=== PATIENT | male | born 1965 | race Caucasian/White ===

== ENCOUNTER 2017-07-23 17:16 | Inpatient (IN) | payer OTHER ==
[2017-07-23] MEDS ORDERED: SODIUM CHLORIDE 0.9% 1,000 ML IV ONE ×2 (17:23)
[2017-07-23] MEDS ORDERED: HYDROmorphone 1 MG/ML SYRINGE IVP STA ×2 (17:33→19:12)
[2017-07-23] MEDS ORDERED: ONDANSETRON 4 MG/2 ML VIAL IVP STA (17:33)
--- NOTE | 2017-07-23 17:38 | ED Physician Documentation ---
PD HPI ABD PAIN - Stated complaint Stated Complaint: R SIDE PX - Chief complaint Chief Complaint: Abd Pain - History obtained from History obtained from: Patient, Family - History of Present Illness Timing - onset: How many hours ago (4), Today Timing - duration: Hours (4) Timing - details: Gradual onset Pain level max: 10 Pain level now: 10 Quality: Aching, Pain Location: RLQ Radiation: Other (non-radiaiting) Improved by: Laying still Worsened by: Moving Associated symptoms: Nausea. No: Vomiting, Hematemesis, Diarrhea, Constipation , Melena, Hematochezia, Dysuria, Hematuria Similar symptoms before: Has not had sx before Recently seen: Not recently seen Review of Systems Ten Systems: 10 systems reviewed and negative Constitutional: reports: Fever, Chills Throat: denies: Sore throat Cardiac: denies: Chest pain / pressure Respiratory: denies: Cough GI: denies: Nausea, Vomiting, Diarrhea Skin: denies: Rash Musculoskeletal: denies: Neck pain, Back pain Neurologic: denies: Focal weakness, Numbness, Headache PD PAST MEDICAL HISTORY - Past Medical History Cardiovascular: None Respiratory: None Neuro: None Endocrine/Autoimmune: None GI: GERD : None HEENT: None Psych: None Musculoskeletal: None Derm: None - Past Surgical History Past Surgical History: Yes HEENT: Tonsil/Adenoidectomy - Present Medications Home Medications: Ambulatory Orders Medication Instructions Recorded Confirmed Fluticasone [Flonase] 1 spray INH PRN PRN 07/23/17 07/23/17 Loratadine 1 tab PO BID 07/23/17 07/23/17 Omeprazole [PriLOSEC] 2 tab PO BID 07/23/17 07/23/17 raNITIdine [Zantac] 1 tab PO DAILY 07/23/17 07/23/17 - Allergies Allergies/Adverse Reactions: Allergies Allergy/AdvReac Type Severity Reaction Status Date / Time lactose Allergy Unknown Verified 07/23/17 21:24 - Social History Does the pt smoke?: No Smoking Status: Never smoker Does the pt drink ETOH?: No Does the pt have substance abuse?: No - Immunizations Immunizations are current?: Yes - POLST Patient has POLST: No PD ED PE NORMAL - Vitals Vital signs reviewed: Yes - General General: Alert and oriented X 3, No acute distress - HEENT HEENT: Moist mucous membranes - Neck Neck: Supple, no meningeal sign - Cardiac Cardiac: RRR - Respiratory Respiratory: No respiratory distress, Clear bilaterally - Abdomen Abdomen: Soft, Other (TTP RLQ at Mcburney's point. + rebound. no guarding. neg rovsing, psoas. + obturator. ) - Back Back: No CVA TTP - Derm Derm: Warm and dry, No rash - Neuro Neuro: Alert and oriented X 3 - Psych Psych: Normal mood, Normal affect Results - Vitals Vitals: Vital Signs - 24 hr 07/23/17 07/23/17 17:18 19:08 Temperature 39.3 C H 38.8 C H Heart Rate 143 H 104 H Respiratory 20 14 Rate Blood Pressure 133/99 H 145/90 H O2 Saturation 97 96 Oxygen O2 Source Room air - Labs Labs: Laboratory Tests 07/23/17 07/23/17 07/23/17 17:32 17:32 17:32 WBC 8.6 RBC 5.32 Hgb 14.9 Hct 43.8 MCV 82.3 MCH 28.1 MCHC 34.1 RDW 13.5 Plt Count 177 MPV 8.7 Neut # 7.0 H Lymph # 1.0 L [place] # 0.5 Eos # 0.0 Baso # 0.0 Absolute Nucleated RBC 0.00 Nucleated RBC % 0.0 Sodium 134 L Potassium 3.5 Chloride 98 L Carbon Dioxide 21 Anion Gap 15.0 H BUN 15 Creatinine 1.1 Estimated GFR (MDRD) 71 L Glucose 108 H Lactic Acid 0.9 Calcium 8.8 Total Bilirubin 1.2 H AST 25 ALT 26 Alkaline Phosphatase 71 Total Protein 7.8 Albumin 4.6 Globulin 3.2 Albumin/Globulin Ratio 1.4 Lipase 30 Urine Color Urine Clarity Urine pH Ur Specific [place] Urine Protein Urine Glucose (UA) Urine Ketones Urine Occult Blood Urine Nitrite Urine Bilirubin Urine Urobilinogen Ur Leukocyte Esterase Urine RBC Urine WBC Ur Squamous Epith Cells Urine Bacteria Urine Yeast Ur Microscopic Review Urine Culture Comments 07/23/17 18:42 WBC RBC Hgb Hct MCV MCH MCHC RDW Plt Count MPV Neut # Lymph # [place] # Eos # Baso # Absolute Nucleated RBC Nucleated RBC % Sodium Potassium Chloride Carbon Dioxide Anion Gap BUN Creatinine Estimated GFR (MDRD) Glucose Lactic Acid Calcium Total Bilirubin AST ALT Alkaline Phosphatase Total Protein Albumin Globulin Albumin/Globulin Ratio Lipase Urine Color LT. YELLOW Urine Clarity HAZY Urine pH 5.5 Ur Specific [place] <=1.005 Urine Protein NEGATIVE Urine Glucose (UA) NEGATIVE Urine Ketones NEGATIVE Urine Occult Blood TRACE-INTA Urine Nitrite NEGATIVE Urine Bilirubin NEGATIVE Urine Urobilinogen 0.2 (NORMAL) Ur Leukocyte Esterase NEGATIVE Urine RBC 0-5 Urine WBC 0-3 Ur Squamous Epith Cells NONE SEEN Urine Bacteria None Seen Urine Yeast PRESENT Ur Microscopic Review INDICATED Urine Culture Comments NOT INDICATED - Rads (name of study) CT abd/pelvis Radiology: Prelim report reviewed, EMP read contemporaneously, See rad report ( Findings consistent with acute sigmoid diverticulitis. There are couple of foci of gas which are most likely extraluminal suggesting perforation, without diffuse pneumoperitoneum or evidence of abscess. Probable tiny right renal cyst. ) PD MEDICAL DECISION MAKING - ED course Complexity details: reviewed results, re-evaluated patient, considered differential, d/w patient, d/w family, d/w senior solutions consultant ED course: Patient is a 52-year-old male who presents to the emergency department with abdominal pain and fever today. Found to have acute sigmoid diverticulitis with microperforations. Discussed the case with Dr. Nelson, general surgery on -call who recommends IV antibiotics and admit to medicine. Discussed the case with the hospitalist, Dr. Hopkins who accepts. Given Flagyl and Zosyn in the emergency department. Pain well controlled. Fever decreased, heart rate decreased. Lactate normal. Patient states he has had diverticulitis several times in the past, last was 2-3 years ago. Has been talked to before about having surgery for this. This document was made in part using voice recognition software. While efforts are made to proofread this document, sound alike and grammatical errors may occur. Departure - Departure Disposition: 67 [facility] DC/Xfer Clinical Impression: Diverticulitis of colon with perforation Qualifiers: Diverticulitis bleeding: without bleeding Qualified Code(s): K57.20 - Diverticulitis of large intestine with perforation and abscess without bleeding Fever Qualifiers: Fever type: unspecified Qualified Code(s): R50.9 - Fever, unspecified Condition: Stable Discharge Date/Time: 07/23/17 20:11
[2017-07-23 17:43] LABS: BASOPHILS % (AUTO) 0.4 %; EOSINOPHILS % (AUTO) 0.3 %; HGB - HEMOGLOBIN 14.9 g/dL (14.0-18.0); LYMPHOCYTES % (AUTO) 11.2 %; MEAN CORPUSCULAR HEMOGLOBIN 28.1 pg (27.0-31.0); MEAN CORPUSCULAR HGB CONC 34.1 g/dL (32.0-36.0); MEAN CORPUSCULAR VOLUME 82.3 fL (80.0-94.0); MEAN PLATELET VOLUME 8.7 fL (7.4-11.4); MONOCYTES # (AUTO) 0.5 10^3/uL (0.0-1.0); MONOCYTES % (AUTO) 6.1 %; PLT - PLATELET COUNT 177 10^3/uL (130-450); RED BLOOD COUNT 5.32 10^6/uL (4.70-6.10); RED CELL DISTRIBUTION WIDTH 13.5 % (12.0-15.0); WHITE BLOOD COUNT 8.6 x10^3/uL (4.8-10.8)
[2017-07-23 17:54] LABS: ALBUMIN 4.6 g/dL (3.2-5.5); ALBUMIN/GLOBULIN RATIO 1.4 (1.0-2.2); BILIRUBIN,TOTAL 1.2 mg/dL (0.2-1.0); CALCIUM 8.8 mg/dL (8.5-10.3); CREATININE 1.1 mg/dL (0.6-1.2); TOTAL PROTEIN 7.8 g/dL (6.7-8.2)
[2017-07-23] MEDS ORDERED: IOPAMIDOL-300 100 ML VIAL ONE (17:57)
[2017-07-23] MEDS ORDERED: IOPAMIDOL-300 100 ML VIAL IVP ONE (18:16)
[2017-07-23 18:49] LABS: BILIRUBIN,URINE NEGATIVE (NEGATIVE); GLUCOSE, URINE (UA) NEGATIVE (NEGATIVE); KETONES,URINE (UA) NEGATIVE (NEGATIVE); LEUKOCYTE ESTERASE, URINE NEGATIVE (NEGATIVE); NITRITE,URINE NEGATIVE (NEGATIVE); OCCULT BLOOD,URINE TRACE-INTA (NEGATIVE); PH,URINE 5.5 PH (5.0-7.5); PROTEIN,URINE NEGATIVE (NEGATIVE); UROBILINOGEN,URINE 0.2 (NORMAL) E.U./dL (NORMAL)
[2017-07-23 19:00] LABS: CLARITY,URINE HAZY (CLEAR)
[2017-07-23 19:05] LABS: BACTERIA,URINE None Seen /HPF (None Seen); RBC,URINE 0-5 /HPF (0-5); SQUAMOUS EPITHELIAL CELL,UR NONE SEEN (<= Few); YEAST,URINE PRESENT
[2017-07-23] MEDS ORDERED: PIPERACILLIN/TAZOBACTAM 3.375 GM in SODIUM CHLORIDE 0.9% MINIBAG 100 ML IV STA (19:10)
[2017-07-23] MEDS ORDERED: metroNIDAZOLE 500 MG/100 ML 500 MG/100 ML BAG IV ONE (19:11)
[2017-07-23] MEDS ORDERED: ACETAMINOPHEN 325 MG TABLET PO STA (19:12)
--- NOTE | 2017-07-23 19:16 | CT Report ---
EXAM: CT ABDOMEN AND PELVIS EXAM DATE: 07/23/2017 06:16 PM. CLINICAL HISTORY: RLQ abd pain. Acute onset. COMPARISONS: Noncontrast CT abdomen and pelvis 03/21/2010. TECHNIQUE: Routine helical CT imaging was performed through the abdomen and pelvis. IV contrast: ISOV UE 300 100mL. Enteric contrast: No. Reconstructions: Coronal and sagittal. In accordance with CT protocol optimization, one or more of the following dose reduction techniques w ere utilized for this exam: automated exposure control, adjustment of mA and/or KV based on patient s ize, or use of iterative reconstructive technique. FINDINGS: Lung Bases: Unremarkable. Liver: Normal. No masses. Gallbladder/Bile Ducts: Unremarkable. Spleen: Normal. Pancreas: Normal. Adrenal Glands: Normal. Kidneys: Tiny right lower pole hypodensity is too small to characterize but likely represents a small cyst.. No definite masses or hydronephrosis. Peritoneal Cavity/Bowel: No adenopathy or free air. The appendix is well visualized and normal. Substantial colonic diverticulosis again demonstrated. There is new focal wall thickening involving t he mid sigmoid colon at and to the right of the midline, just above the level of the bladder, with ne w surrounding hazy infiltrative/inflammatory change and trace fluid, consistent with acute diverticul itis. Multiple air-containing diverticula are seen in the area. However, there are at least 2 small f oci of gas in the right pelvis just medial to the iliac vessels (- and coronal images 34, 35) w hich appear more from the colon and are highly suspicious for small extraluminal foci which would suggest perforation. However, there is no evidence of more diffuse pneumoperitoneum. No eviden ce of abscess. Pelvic Organs: Normal. The bladder and visualized pelvic organs are within normal limits. Vasculature: No aneurysms or other significant abnormality. Bones: No significant abnormality. Other: Small fat-containing umbilical hernia redemonstrated. IMPRESSION: 1. Findings consistent with acute sigmoid diverticulitis. 2. There are couple of foci of gas which are most likely extraluminal suggesting perforation, without diffuse pneumoperitoneum or evidence of abscess. 3. Probable tiny right renal cyst. RADIA The above findings were discussed with Dr. Shahid Kapoor by Dr. Jaime Puente at 19:09 hrs on 07/23/17 . Referring Provider Line: [phone] SITE ID: [id number]
[2017-07-23] MEDS ORDERED: ZOLPIDEM 5 MG TABLET PO PRN (19:37)
[2017-07-23] MEDS ORDERED: PROMETHAZINE 25 MG/1 ML VIAL IV PRN (20:06)
[2017-07-23] MEDS: ONDANSETRON 4 MG/2 ML VIAL IVP PRN (20:08)
[2017-07-23] MEDS: SODIUM CHLORIDE FLUSH 0.9% 10 ML SYRINGE IVP SCH (20:58)
[2017-07-23] MEDS: PANTOPRAZOLE 40 MG VIAL IVP SCH (20:59)
[2017-07-23] MEDS: KETOROLAC 15 MG/ML VIAL IVP PRN (21:00)
[2017-07-23] MEDS: D5NS W/20 MEQ KCL 1,000 ML IV SCH (21:02)
[2017-07-24] MEDS: ACETAMINOPHEN 1,000 MG/100 ML 100 ML IV PRN ×2 (00:35→20:03)
[2017-07-24] MEDS: SODIUM CHLORIDE FLUSH 0.9% 10 ML SYRINGE IVP PRN ×2 (02:59→06:52)
[2017-07-24] MEDS: MORPHINE 2 MG/ML CARPUJECT IVP PRN ×7 (03:00→21:31)
[2017-07-24] MEDS: metroNIDAZOLE 500 MG/100 ML 500 MG/100 ML BAG IV SCH ×3 (04:34→21:31)
[2017-07-24 05:20] LABS: BASOPHILS % (AUTO) 0.1 %; HGB - HEMOGLOBIN 12.7 g/dL (14.0-18.0); LYMPHOCYTES # (AUTO) 0.6 10^3/uL (1.5-3.5); LYMPHOCYTES % (AUTO) 11.8 %; MEAN CORPUSCULAR HEMOGLOBIN 27.5 pg (27.0-31.0); MEAN CORPUSCULAR HGB CONC 33.1 g/dL (32.0-36.0); MEAN CORPUSCULAR VOLUME 83.3 fL (80.0-94.0); MEAN PLATELET VOLUME 8.8 fL (7.4-11.4); MONOCYTES # (AUTO) 0.3 10^3/uL (0.0-1.0); MONOCYTES % (AUTO) 6.5 %; NEUTROPHILS # (AUTO) 4.2 10^3/uL (1.5-6.6); NEUTROPHILS % (AUTO) 81.6 %; PLT - PLATELET COUNT 150 10^3/uL (130-450); RED CELL DISTRIBUTION WIDTH 13.8 % (12.0-15.0); WHITE BLOOD COUNT 5.1 x10^3/uL (4.8-10.8)
[2017-07-24 05:24] LABS: CALCIUM 7.2 mg/dL (8.5-10.3); CREATININE 0.8 mg/dL (0.6-1.2)
[2017-07-24] MEDS: PIPERACILLIN/TAZOBACTAM 3.375 GM in SODIUM CHLORIDE 0.9% MINIBAG 100 ML IV SCH ×3 (05:36→23:06)
[2017-07-24] MEDS: SODIUM CHLORIDE FLUSH 0.9% 10 ML SYRINGE IVP SCH ×3 (05:36→21:31)
[2017-07-24] MEDS: PANTOPRAZOLE 40 MG VIAL IVP SCH (06:52)
[2017-07-24] MEDS: D5NS W/20 MEQ KCL 1,000 ML IV SCH ×2 (06:52→17:01)
[2017-07-24] MEDS ORDERED: PROMETHAZINE INJ 25 MG in SODIUM CHLORIDE 0.9% 50 ML IV PRN (07:23)
--- NOTE | 2017-07-24 09:17 | HISTORY & PHYSICAL EXAMINATION ---
DATE OF SERVICE: 07/23/2017 Physician: Iram Hopkins MD PRIMARY CARE PHYSICIAN: Zac Voar MD CHIEF COMPLAINT: Abdominal pain. HISTORY OF PRESENT ILLNESS: The patient is a 52-year-old pleasant male, with not much past medical history except for history of diverticulitis and gastroesophageal reflux , who presented to [facility] after he developed abdominal pain about 4 hours prior to coming to the ER. He was brought in by a private vehicle and accompanied by his . He developed 10/10 intensity of sharp right lower quadrant abdominal discomfort, which was associated with nausea and fever. Prior to this, he had an episode of diverticulitis back in 2014. Most recently, he did not have any abdominal complaints. Other than medications for GERD, he did not take any outpatient medications. Regarding bowel movements, he usually has regular bowel movements, and the last bowel movement he had was earlier in the morning of 07/23/2017. It was a normal bowel movement without blood. Upon presentation to the ER, the patient showed septic physiology. He was tachycardic with heart rate around 140, had high fever with temperature 39.3 Celsius. Blood pressure maintained normal at 130/100, respiratory rate was 20, oxygen saturation 97% on room air. ER workup included CT scan of the abdomen and pelvis, which showed sigmoid diverticulitis with microperforation. Regarding laboratories, white blood cell count was normal at 8.6, hemoglobin normal at 14.9. There was neutrophil predominance. Electrolytes included sodium 134, potassium 3.5, BUN 15, creatinine 1.1. Lactic acid was 0.9. Urinalysis was unremarkable. At the ER, the patient received Flagyl and Zosyn and 2 liters IV fluid. The case was discussed with the covering surgeon, Dr. Nelson, per his opinion patient should initially receive conservative treatment, and he will evaluate in the morning. CODE STATUS: FULL CODE. PAST MEDICAL HISTORY 1. History of diverticulosis and diverticulitis with last episode of diverticulitis in 2014. 2. Gastroesophageal reflux. OUTPATIENT MEDICATIONS Included: 1. Ranitidine. 2. Omeprazole. 3. Fluticasone. 4. Loratadine. SOCIAL HISTORY: Patient does not smoke, does not drink. He is fully functional instrumental activities of daily living. He lives with his . FAMILY HISTORY: No pertinent chronic illness in first degree relatives. REVIEW OF SYSTEMS: Please see pertinent positives listed above in history of present illness. I completed 12-point review; there was no additional complaint. PHYSICAL EXAMINATION VITAL SIGNS: Please see listed above in the history of present illness. GENERAL: The patient is a well-developed, well-nourished, young-appearing male who appeared in distress, was diaphoretic, and vomited during my exam. ABDOMEN: Not much bowel tone. Diffuse tenderness mostly on the right side. No voluntary guarding and no rebound. Vomitus was with clear gastric content. No blood. RESPIRATORY: Clear to auscultation without wheeze or crackles, no increased work of breathing. SKIN: Mild pallor and diaphoresis. No jaundice. MUSCULOSKELETAL: Atraumatic, normal. CARDIOVASCULAR: S1, S2. Regular tachycardia. No pathologic murmur. LYMPHATIC: No lymphedema. NEUROLOGIC: Alert, oriented, nonfocal. PSYCHIATRIC: Cooperative, pleasant to talk to. ACTIVE ISSUES/DIAGNOSIS/PLAN: Sepsis, the patient rules in for this diagnosis, given vital sign abnormalities with heart rate around 140 and high fever above 39 Celsius. The source of sepsis is abdominal source with perforated diverticulitis. PLAN AND ORDERS 1. Patient is getting admitted as inpatient. He will be treated with continued IV fluids, IV antibiotics, and supportive care/symptom control; will receive thrombosis prophylaxis and gastrointestinal prophylaxis. He will be evaluated by on-call surgeon in the morning; however, most likely will improve on conservative management. 2. Given his septic physiology, he will be monitored on telemetry for 24 hours. Time spent in the care of this patient was 45 minutes. ATTESTATION: In good erma, I certify that this patient will be admitted as inpatient as he needs to be hospitalized for more than 2 days; however, the reasonable expectation is that he will be discharged home or transferred to another facility within 96 hours. cc: Zac Vora MD TD: 07/24/2017 06:00 LALITHA
[2017-07-24] MEDS: ENOXAPARIN 40 MG/0.4 ML SYRINGE SUBQ SCH (10:26)
[2017-07-24] MEDS: POLYETHYLENE GLYCOL 3350 17 GM PACKET PO SCH (10:26)
--- NOTE | 2017-07-24 10:45 | PROVIDER PROGRESS NOTE ---
Subjective - Prog Note Date Prog Note Date: 07/24/17 Prog Note Time: 10:43 - Subjective Pt reports feeling: Improved Subjective: Laney notes that his pain is controlled. He denies SOB, chest pain, N/V or a new cough. He has tenderness in lower quadrants of his abdomen. Current Medications - Current Medications Current Medications: Active Medications Enoxaparin Sodium (Lovenox) 40 mg SUBQ DAILY [facility] Last Admin: 07/24/17 10:26 Dose: 40 mg Potassium Chloride/Dextrose/Sod Cl () 1,000 mls @ 100 mls/hr IV .Q10H [facility] Last Admin: 07/24/17 17:01 Dose: 100 mls/hr Metronidazole (Flagyl 500 Mg/100 Ml) 500 mg in 100 mls @ 100 mls/hr IV Q8HR [facility] Last Infusion: 07/24/17 15:01 Dose: Infused Acetaminophen (Ofirmev) 100 mls @ 400 mls/hr IV Q6HR PRN PRN Reason: PAIN Last Infusion: 07/24/17 09:43 Dose: Infused Piperacillin Sod/Tazobactam (Sod 3.375 gm/ Sodium Chloride) 100 mls @ 200 mls/ hr IV Q8HR [facility] Last Infusion: 07/24/17 15:01 Dose: Infused Promethazine HCl 25 mg/ Sodium (Chloride) 51 mls @ 100 mls/hr IV BID PRN PRN Reason: Nausea / Vomiting Ketorolac Tromethamine (Toradol Inj) 15 mg IVP BID PRN PRN Reason: PAIN Stop: 07/28/17 20:59 Last Admin: 07/23/17 21:00 Dose: 15 mg Morphine Sulfate (Morphine (Carpuject)) 4 mg IVP Q2HR PRN PRN Reason: Pain 8 to 10 Last Admin: 07/24/17 13:46 Dose: 4 mg Ondansetron HCl (Zofran Inj) 4 mg IVP Q6HR PRN PRN Reason: Nausea / Vomiting Last Admin: 07/23/17 20:08 Dose: 4 mg Pantoprazole Sodium (Protonix) 40 mg IVP QDAC [facility] Last Admin: 07/24/17 06:52 Dose: 40 mg Polyethylene Glycol (Miralax) 17 gm PO DAILY [facility] Last Admin: 07/24/17 10:26 Dose: Not Given Sodium Chloride (Normal Saline Flush 0.9%) 10 ml IVP PRN PRN PRN Reason: NEEDED PER PROVIDER ORDERS Last Admin: 07/24/17 06:52 Dose: 10 ml Sodium Chloride (Normal Saline Flush 0.9%) 10 ml IVP Q8HR [facility] Last Admin: 07/24/17 15:00 Dose: Not Given Zolpidem Tartrate (Ambien) 5 mg PO QPM PRN PRN Reason: Insomnia Fluticasone [Flonase] 1 spray GERRI PRN PRN 07/23/17 Loratadine 1 tab PO BID 07/23/17 Omeprazole [PriLOSEC] 2 tab PO BID 07/23/17 raNITIdine [Zantac] 1 tab PO BID 07/23/17 Objective - Vital Signs/Intake & Output Reviewed Vital Signs: Yes Vital Signs: Vital Signs x48h Temp Pulse Resp BP Pulse Ox 07/24/17 08:00 36.9 C 72 18 105/65 98 07/24/17 05:31 36.7 C 70 16 102/62 96 Intake & Output: Intake & Output 07/21/17 07/22/17 07/23/17 07/24/17 23:59 23:59 23:59 23:59 Intake Total 552.5 1283.333 Output Total 375 450 Balance 177.5 833.333 - Objective General Appearance: positive: No acute distress, Alert Eyes Bilateral: positive: Normal inspection ENT: positive: ENT inspection nml, Pharynx nml, Dry mucous membranes Neck: positive: Nml inspection, Thyroid nml, No JVD, Trachea midline Respiratory: positive: Chest non-tender, No respiratory distress Cardiovascular: positive: Regular rate & rhythm, No murmur, No gallop Peripheral Pulses: 2+ Radial (R), 2+ Radial (L) Abdomen: positive: Tenderness, Guarding, Abnml bowel sounds Back: positive: Nml inspection Skin: positive: No rash, Warm, Dry Extremities: positive: Non-tender, Full ROM, Nml appearance, No pedal edema Neurologic/Psychiatric: positive: Oriented x3, CN's nml (2-12), Motor nml, Sensation nml Reflexes: Bicep (R): 2+, Bicep (L): 2+ - Lab Results Fish Bones: 07/24/17 04:45 07/24/17 04:45 Other Labs: Lab Results x24hrs 07/24/17 07/24/17 Range/Units 04:45 04:45 WBC 5.1 (4.8-10.8) x10^3/uL RBC 4.60 L (4.70-6.10) 10^6/uL Hgb 12.7 L (14.0-18.0) g/dL Hct 38.3 L (42.0-52.0) % MCV 83.3 (80.0-94.0) fL MCH 27.5 (27.0-31.0) pg MCHC 33.1 (32.0-36.0) g/dL RDW 13.8 (12.0-15.0) % Plt Count 150 (130-450) 10^3/uL MPV 8.8 (7.4-11.4) fL Neut # 4.2 (1.5-6.6) 10^3/uL Lymph # 0.6 L (1.5-3.5) 10^3/uL [place] # 0.3 (0.0-1.0) 10^3/uL Eos # 0.0 (0.0-0.7) 10^3/uL Baso # 0.0 (0.0-0.1) 10^3/uL Absolute Nucleated RBC 0.00 x10^3/uL Nucleated RBC % 0.1 /100WBC Sodium 131 L (135-145) mmol/L Potassium 3.7 (3.5-5.0) mmol/L Chloride 100 L (101-111) mmol/L Carbon Dioxide 25 (21-32) mmol/L Anion Gap 6.0 (6-13) BUN 12 (6-20) mg/dL Creatinine 0.8 (0.6-1.2) mg/dL Estimated GFR (MDRD) 102 (>89) Glucose 128 H (70-100) mg/dL Calcium 7.2 L (8.5-10.3) mg/dL - Diagnostic Imaging Diagnostic Imaging Results: positive: Prelim report reviewed, Final report reviewed Diagnostic Imaging Comments: CT abdomen: FINDINGS: Lung Bases: Unremarkable. Liver: Normal. No masses. Gallbladder/Bile Ducts: Unremarkable. Spleen: Normal. Pancreas: Normal. Adrenal Glands: Normal. Kidneys: Tiny right lower pole hypodensity is too small to characterize but likely represents a small cyst.. No definite masses or hydronephrosis. Peritoneal Cavity/Bowel: No adenopathy or free air. The appendix is well visualized and normal. Substantial colonic diverticulosis again demonstrated. There is new focal wall thickening involving the mid sigmoid colon at and to the right of the midline, just above the level of the bladder, with new surrounding hazy infiltrative/inflammatory change and trace fluid, consistent with acute diverticulitis. Multiple air-containing diverticula are seen in the area. However, there are at least 2 small foci of gas in the right pelvis just medial to the iliac vessels (3/72-74 and coronal images 34, 35) which appear more from the colon and are highly suspicious for small extraluminal foci which would suggest perforation. However , there is no evidence of more diffuse pneumoperitoneum. No evidence of abscess. Pelvic Organs: Normal. The bladder and visualized pelvic organs are within normal limits. Vasculature: No aneurysms or other significant abnormality. Bones: No significant abnormality. Other: Small fat-containing umbilical hernia redemonstrated. IMPRESSION: 1. Findings consistent with acute sigmoid diverticulitis. 2. There are couple of foci of gas which are most likely extraluminal suggesting perforation, without diffuse pneumoperitoneum or evidence of abscess. 3. Probable tiny right renal cyst. Assessment/Plan - Problem List (1) Diverticulitis of colon with perforation Impression: An abdominal CT was performed and shows free air, likely caused by perforation without diffuse pneumoperitoneum or evidence of abscess. General surgery was consulted and Dr. Nelson is planning to see the patient. No indication for procedures. Plan: Continue IV antibiotic treatment, watch for signs of worsening condition. Qualifiers: Diverticulitis bleeding: without bleeding Qualified Code(s): K57.20 - Diverticulitis of large intestine with perforation and abscess without bleeding (2) Nausea Impression: Upon exam today patient denies nausea or vomiting. Patient seems comfortable, and denies a BM today. Plan: Continue IV hydration, control pain and use antiemetics if needed. (3) Intractable lower abdominal pain Impression: Patient continues to have lower bilateral abdominal pain. This correlates to acute diverticulitis. Patient admits to good pain control during exam today. Plan: Treat with IV morphine, IV APAP and IV protonix.
[2017-07-24] MEDS ORDERED: FLUTICASONE NASAL SPRAY NAS PRN (18:42)
--- NOTE | 2017-07-24 19:12 | CONSULTATION NOTE ---
Referring Provider Name of Referring Provider:: Iglesia Weston Consult Date: 07/24/17 Chief Complaint - Chief Complaint Chief Complaint: Perforated diverticulitis without signs of sepsis History of Present Illness - Admitted From Admitted From:: Emergency department - History Obtained From Records Reviewed: Yes History obtained from: Patient Exam Limitations: None - History of Present Illness HPI Comment/Other: Called by Dr. Jacob Bojorquez rergarding this 52 year old male with recurrent diverticulitis. Patient has had at least 2 episodes over the past 2 years - one treated with pain killers and the other requiring hospitalization at [facility]. His last colonoscopy was done about 9 years ago and he is due next year (per the patient). Other than his abdominal pain he is now minimally symptomatic. Daniel hematemesis, melena or hematochezia. History - Past Medical History Cardiovascular: reports: None Respiratory: reports: None Neuro: reports: None Endocrine/Autoimmune: reports: None GI: reports: GERD : reports: None HEENT: reports: None Psych: reports: None Musculoskeletal: reports: None Derm: reports: None MRSA Hx?: No Other Past Medical History: L knee, Cpap use, deviated repair septum - Past Surgical History HEENT: reports: Tonsil/Adenoidectomy - POLST Patient has POLST: No Meds/Allgy - Home Medications Home Medications: Ambulatory Orders Medication Instructions Recorded Confirmed Fluticasone [Flonase] 1 spray GERRI PRN PRN 07/23/17 07/24/17 Loratadine 1 tab PO BID 07/23/17 07/23/17 Omeprazole [PriLOSEC] 2 tab PO BID 07/23/17 07/23/17 raNITIdine [Zantac] 1 tab PO BID 07/23/17 07/24/17 - Allergies Allergies/Adverse Reactions: Allergies Allergy/AdvReac Type Severity Reaction Status Date / Time lactose Allergy Unknown Verified 07/23/17 21:24 Review of Systems - Constitutional Constitutional: reports: Poor appetite. denies: Fatigue, Fever, Chills, Malaise , Weakness - Ears, Nose & Throat Ears, Nose & Throat: denies: Ear pain, Hearing loss, Sore throat, Hoarseness - Cardiovascular Cariovascular: denies: Irregular heart rate, Palpitations, Chest pain, Lightheadedness - Respiratory Respiratory: denies: Cough, Sputum production, Wheezing - Gastrointestinal Gastrointestinal: reports: Abdominal pain. denies: Rectal bleeding, Black stools, Nausea, Vomiting, Bile emesis, Yared blood emesis, Coffee grounds emesis - Genitourinary Genitourinary: denies: Dysuria - Integumentary Integumentary: denies: Rash - Neurological Neurological: denies: General weakness, Focal weakness, Headache, Dizziness - Psychiatric Psychiatric: denies: Depression, Anxiety, Suicidal, Delusions, Hallucinations, Homicidal Exam - Vital Signs Reviewed Vital Signs: Yes Vital Signs: Vital Signs x48h Temp Pulse Resp BP Pulse Ox 07/24/17 16:00 37.6 C H 88 22 113/76 95 - Physical Exam General Appearance: positive: No acute distress, Alert (Evaluated in Room 2206 in bed.) Eyes Bilateral: positive: No lid inflammation, Conjunctivae nml, No scleral icterus Neck: positive: Trachea midline Respiratory: positive: Chest non-tender, No respiratory distress, Breath sounds nml Cardiovascular: positive: Regular rate & rhythm, No murmur, No gallop Abdomen: positive: Tenderness (In suprapubic area.), Other (Small umbilical hernia - not incarcerated or strangulated.) Skin: positive: Color nml Extremities: positive: Non-tender, Nml appearance Neurologic/Psychiatric: positive: Oriented x3 Conclusion/Plan - Diagnosis Diagnosis: Recurrent perforated diverticulitis without sepsis - Plan Plan: Over 60 minutes were spent in [id number] conversation regarding his diagnosis and proposed plan. My role is strictly supportive in case he worsens. The plan that we would like to follow is to have the patient receive IV antibiotics and improve to the point where he can have a colonoscopy in 6 weeks and if no cancer is seen then plan elective sigmoid resection. I explained that if the sigmoid is not electively removed then the likelihood of a free perforation is too high and he would likely end up with urgent sigmoidectomy and end colostomy (a situation we would like to avoid). The patient vocalized an understanding and an agreement with this plan. - Lab Results Lab results reviewed: Yes Fish Bones: 07/24/17 04:45 07/24/17 04:45
[2017-07-24] MEDS: LORATADINE 10 MG TABLET PO SCH (20:03)
[2017-07-25] MEDS: ONDANSETRON 4 MG/2 ML VIAL IVP PRN ×2 (00:21→15:31)
[2017-07-25] MEDS: SODIUM CHLORIDE FLUSH 0.9% 10 ML SYRINGE IVP PRN ×5 (00:21→18:31)
[2017-07-25] MEDS: MORPHINE 2 MG/ML CARPUJECT IVP PRN ×6 (04:28→23:57)
[2017-07-25] MEDS: D5NS W/20 MEQ KCL 1,000 ML IV SCH ×3 (04:44→17:19)
[2017-07-25] MEDS: PIPERACILLIN/TAZOBACTAM 3.375 GM in SODIUM CHLORIDE 0.9% MINIBAG 100 ML IV SCH ×3 (04:53→22:15)
[2017-07-25] MEDS: SODIUM CHLORIDE FLUSH 0.9% 10 ML SYRINGE IVP SCH ×3 (04:56→21:05)
[2017-07-25 06:07] LABS: BASOPHILS % (AUTO) 0.4 %; EOSINOPHILS % (AUTO) 0.1 %; HGB - HEMOGLOBIN 12.2 g/dL (14.0-18.0); LYMPHOCYTES # (AUTO) 0.6 10^3/uL (1.5-3.5); LYMPHOCYTES % (AUTO) 12.7 %; MEAN CORPUSCULAR HEMOGLOBIN 27.5 pg (27.0-31.0); MEAN CORPUSCULAR HGB CONC 32.9 g/dL (32.0-36.0); MEAN CORPUSCULAR VOLUME 83.6 fL (80.0-94.0); MONOCYTES # (AUTO) 0.3 10^3/uL (0.0-1.0); MONOCYTES % (AUTO) 7.2 %; NEUTROPHILS # (AUTO) 3.9 10^3/uL (1.5-6.6); NEUTROPHILS % (AUTO) 79.6 %; PLT - PLATELET COUNT 148 10^3/uL (130-450); RED BLOOD COUNT 4.45 10^6/uL (4.70-6.10); RED CELL DISTRIBUTION WIDTH 13.9 % (12.0-15.0); WHITE BLOOD COUNT 4.9 x10^3/uL (4.8-10.8)
[2017-07-25] MEDS: metroNIDAZOLE 500 MG/100 ML 500 MG/100 ML BAG IV SCH ×3 (06:15→20:52)
[2017-07-25] MEDS: PANTOPRAZOLE 40 MG VIAL IVP SCH (06:15)
[2017-07-25 06:17] LABS: ALBUMIN 3.6 g/dL (3.2-5.5); ALBUMIN/GLOBULIN RATIO 1.3 (1.0-2.2); BILIRUBIN,TOTAL 1.4 mg/dL (0.2-1.0); CALCIUM 7.6 mg/dL (8.5-10.3); CREATININE 0.8 mg/dL (0.6-1.2); TOTAL PROTEIN 6.3 g/dL (6.7-8.2)
[2017-07-25] MEDS: LORATADINE 10 MG TABLET PO SCH ×2 (08:10→20:53)
[2017-07-25] MEDS: KETOROLAC 15 MG/ML VIAL IVP PRN (08:10)
[2017-07-25] MEDS: ENOXAPARIN 40 MG/0.4 ML SYRINGE SUBQ SCH (08:11)
[2017-07-25] MEDS: POLYETHYLENE GLYCOL 3350 17 GM PACKET PO SCH (08:11)
--- NOTE | 2017-07-25 11:50 | PROVIDER PROGRESS NOTE ---
Subjective - Prog Note Date Prog Note Date: 07/25/17 Prog Note Time: 11:48 - Subjective Pt reports feeling: Improved, No change Subjective: Fredrico complains of nausea with vomiting and +flatus with no BM. He denies SOB, chest pain, N/V or a new cough. Current Medications - Current Medications Current Medications: Active Medications Enoxaparin Sodium (Lovenox) 40 mg SUBQ DAILY [facility] Last Admin: 07/25/17 08:11 Dose: Not Given Fluticasone Propionate (Flonase) 1 sprays GERRI PRN PRN PRN Reason: Allergies Potassium Chloride/Dextrose/Sod Cl () 1,000 mls @ 100 mls/hr IV .Q10H [facility] Last Admin: 07/25/17 11:22 Dose: 100 mls/hr Metronidazole (Flagyl 500 Mg/100 Ml) 500 mg in 100 mls @ 100 mls/hr IV Q8HR [facility] Last Infusion: 07/25/17 07:21 Dose: Infused Acetaminophen (Ofirmev) 100 mls @ 400 mls/hr IV Q6HR PRN PRN Reason: PAIN Last Infusion: 07/25/17 00:01 Dose: Infused Piperacillin Sod/Tazobactam (Sod 3.375 gm/ Sodium Chloride) 100 mls @ 200 mls/ hr IV Q8HR [facility] Last Infusion: 07/25/17 06:06 Dose: Infused Promethazine HCl 25 mg/ Sodium (Chloride) 51 mls @ 100 mls/hr IV BID PRN PRN Reason: Nausea / Vomiting Ketorolac Tromethamine (Toradol Inj) 15 mg IVP BID PRN PRN Reason: PAIN Stop: 07/28/17 20:59 Last Admin: 07/25/17 08:10 Dose: 15 mg Loratadine (Claritin) 10 mg PO BID [facility] Last Admin: 07/25/17 08:10 Dose: 10 mg Morphine Sulfate (Morphine (Carpuject)) 4 mg IVP Q2HR PRN PRN Reason: Pain 8 to 10 Last Admin: 07/25/17 11:21 Dose: 4 mg Ondansetron HCl (Zofran Inj) 4 mg IVP Q6HR PRN PRN Reason: Nausea / Vomiting Last Admin: 07/25/17 00:21 Dose: 4 mg Pantoprazole Sodium (Protonix) 40 mg IVP QDAC [facility] Last Admin: 07/25/17 06:15 Dose: 40 mg Polyethylene Glycol (Miralax) 17 gm PO DAILY [facility] Last Admin: 07/25/17 08:11 Dose: Not Given Sodium Chloride (Normal Saline Flush 0.9%) 10 ml IVP PRN PRN PRN Reason: NEEDED PER PROVIDER ORDERS Last Admin: 07/25/17 08:10 Dose: 10 ml Sodium Chloride (Normal Saline Flush 0.9%) 10 ml IVP Q8HR [facility] Last Admin: 07/25/17 04:56 Dose: Not Given Zolpidem Tartrate (Ambien) 5 mg PO QPM PRN PRN Reason: Insomnia Fluticasone [Flonase] 1 spray GERRI PRN PRN 07/23/17 Loratadine 1 tab PO BID 07/23/17 Omeprazole [PriLOSEC] 2 tab PO BID 07/23/17 raNITIdine [Zantac] 1 tab PO BID 07/23/17 Objective - Vital Signs/Intake & Output Reviewed Vital Signs: Yes Vital Signs: Vital Signs x48h Temp Pulse Resp BP Pulse Ox 07/25/17 08:00 37.5 C 85 18 117/70 94 Intake & Output: Intake & Output 07/22/17 07/23/17 07/24/17 07/25/17 23:59 23:59 23:59 23:59 Intake Total 552.5 3493.333 2190.000 Output Total 375 1250 20 Balance 177.5 2243.333 2170.000 - Objective General Appearance: positive: No acute distress, Alert Eyes Bilateral: positive: Normal inspection ENT: positive: ENT inspection nml, Pharynx nml, No signs of dehydration Neck: positive: Nml inspection, Thyroid nml, No JVD, Stiff neck Respiratory: positive: Chest non-tender, No respiratory distress, Breath sounds nml Cardiovascular: positive: Regular rate & rhythm, No murmur, No gallop Peripheral Pulses: 1+ Radial (R), 1+ Radial (L) Abdomen: positive: No organomegaly, Tenderness, Abnml bowel sounds, Other ( rounded, soft) Skin: positive: No rash, Warm, Dry Extremities: positive: Non-tender, Full ROM, Nml appearance, No pedal edema Neurologic/Psychiatric: positive: Oriented x3, CN's nml (2-12), Motor nml, Sensation nml, Depressed mood/affect Reflexes: Bicep (R): 2+, Bicep (L): 2+ - Lab Results Fish Bones: 07/26/17 04:41 07/26/17 04:41 Other Labs: Lab Results x24hrs 07/25/17 07/25/17 07/25/17 Range/Units 05:56 05:56 05:56 WBC 4.9 (4.8-10.8) x10^3/uL RBC 4.45 L (4.70-6.10) 10^6/uL Hgb 12.2 L (14.0-18.0) g/dL Hct 37.2 L (42.0-52.0) % MCV 83.6 (80.0-94.0) fL MCH 27.5 (27.0-31.0) pg MCHC 32.9 (32.0-36.0) g/dL RDW 13.9 (12.0-15.0) % Plt Count 148 (130-450) 10^3/uL MPV 8.0 (7.4-11.4) fL Neut # 3.9 (1.5-6.6) 10^3/uL Lymph # 0.6 L (1.5-3.5) 10^3/uL Hendry # 0.3 (0.0-1.0) 10^3/uL Eos # 0.0 (0.0-0.7) 10^3/uL Baso # 0.0 (0.0-0.1) 10^3/uL Absolute Nucleated RBC 0.00 x10^3/uL Nucleated RBC % 0.1 /100WBC Sodium 134 L (135-145) mmol/L Potassium 3.9 (3.5-5.0) mmol/L Chloride 102 (101-111) mmol/L Carbon Dioxide 25 (21-32) mmol/L Anion Gap 7.0 (6-13) BUN 8 (6-20) mg/dL Creatinine 0.8 (0.6-1.2) mg/dL Estimated GFR (MDRD) 102 (>89) Glucose 118 H (70-100) mg/dL Lactic Acid 0.5 (0.5-2.2) mmol/L Calcium 7.6 L (8.5-10.3) mg/dL Magnesium 2.0 (1.7-2.8) mg/dL Total Bilirubin 1.4 H (0.2-1.0) mg/dL AST 16 (10-42) IU/L ALT 17 (10-60) IU/L Alkaline Phosphatase 54 (42-121) IU/L Total Protein 6.3 L (6.7-8.2) g/dL Albumin 3.6 (3.2-5.5) g/dL Globulin 2.7 (2.1-4.2) g/dL Albumin/Globulin Ratio 1.3 (1.0-2.2) - Diagnostic Imaging Diagnostic Imaging Results: positive: Final report reviewed Assessment/Plan - Problem List (1) Diverticulitis of colon with perforation Impression: An abdominal CT was performed and shows free air, likely caused by perforation without diffuse pneumoperitoneum or evidence of abscess. General surgery was consulted and Dr. Nelson has been seeing daily. No indication for procedures , although due to patient's progress of slow to improve, a repeat abdominal CT was ordered. Plan: Continue IV antibiotic treatment, watch for signs of worsening condition. Qualifiers: Diverticulitis bleeding: without bleeding Qualified Code(s): K57.20 - Diverticulitis of large intestine with perforation and abscess without bleeding (2) Nausea Impression: Upon exam today patient admits to one episode of vomiting, denies hematemesis. Patient seems comfortable, and denies a BM, although + flatus. Plan: Continue IV hydration, control pain and use antiemetics if needed. (3) Intractable lower abdominal pain Impression: Patient continues to have lower bilateral abdominal pain. This correlates to acute diverticulitis. Patient admits to not as good pain control during exam today, although he received less Morphine as per chart review. Plan: Treat with IV morphine, IV APAP and IV protonix.
[2017-07-25] MEDS: ACETAMINOPHEN 1,000 MG/100 ML 100 ML IV PRN (11:58)
--- NOTE | 2017-07-25 16:13 | PROVIDER PROGRESS NOTE ---
Subjective - General Admit Date: 07/23/17 - Review of Systems General: positive: Other (States he is having slightly more pain but he has been taking less pain medication today as compared to yesterday.) HEENT: positive: No symptoms Pulmonary: positive: No symptoms Cardiovascular: positive: No symptoms Gastrointestinal: positive: Abdominal pain (See above.), Flatus Genitourinary: positive: No symptoms Musculoskeletal: positive: No symptoms Skin: positive: No symptoms Psychiatric: positive: No symptoms Objective - Patient Data Reviewed Vital Signs: Yes Vital Signs: Vital Signs x48h Temp Pulse Resp BP Pulse Ox 07/25/17 16:00 36.6 C 74 16 120/82 H 99 Weight: Weight 07/23/17 07/24/17 07/25/17 23:59 23:59 23:59 Weight (kg) 74 kg Intake & Output: Intake and Output Totals x24h 07/23/17 07/24/17 07/25/17 23:59 23:59 23:59 Intake Total 552.5 3493.333 2590.000 Output Total 375 1250 20 Balance 177.5 2243.333 2570.000 - Lab Results Lab Results: 07/25/17 05:56 07/25/17 05:56 Other Lab Results: Lab Results x24hrs 07/25/17 07/25/17 07/25/17 Range/Units 05:56 05:56 05:56 WBC 4.9 (4.8-10.8) x10^3/uL RBC 4.45 L (4.70-6.10) 10^6/uL Hgb 12.2 L (14.0-18.0) g/dL Hct 37.2 L (42.0-52.0) % MCV 83.6 (80.0-94.0) fL MCH 27.5 (27.0-31.0) pg MCHC 32.9 (32.0-36.0) g/dL RDW 13.9 (12.0-15.0) % Plt Count 148 (130-450) 10^3/uL MPV 8.0 (7.4-11.4) fL Neut # 3.9 (1.5-6.6) 10^3/uL Lymph # 0.6 L (1.5-3.5) 10^3/uL Dale # 0.3 (0.0-1.0) 10^3/uL Eos # 0.0 (0.0-0.7) 10^3/uL Baso # 0.0 (0.0-0.1) 10^3/uL Absolute Nucleated RBC 0.00 x10^3/uL Nucleated RBC % 0.1 /100WBC Sodium 134 L (135-145) mmol/L Potassium 3.9 (3.5-5.0) mmol/L Chloride 102 (101-111) mmol/L Carbon Dioxide 25 (21-32) mmol/L Anion Gap 7.0 (6-13) BUN 8 (6-20) mg/dL Creatinine 0.8 (0.6-1.2) mg/dL Estimated GFR (MDRD) 102 (>89) Glucose 118 H (70-100) mg/dL Lactic Acid 0.5 (0.5-2.2) mmol/L Calcium 7.6 L (8.5-10.3) mg/dL Magnesium 2.0 (1.7-2.8) mg/dL Total Bilirubin 1.4 H (0.2-1.0) mg/dL AST 16 (10-42) IU/L ALT 17 (10-60) IU/L Alkaline Phosphatase 54 (42-121) IU/L Total Protein 6.3 L (6.7-8.2) g/dL Albumin 3.6 (3.2-5.5) g/dL Globulin 2.7 (2.1-4.2) g/dL Albumin/Globulin Ratio 1.3 (1.0-2.2) - Current Medications Current Medications: Current Medications Generic Name Dose Route Start Last Admin Trade Name Freq PRN Reason Stop Dose Admin Enoxaparin Sodium 40 mg 07/24/17 09:00 07/25/17 08:11 Lovenox SUBQ Not Given DAILY [facility] Potassium Chloride/Dextrose/Sod Cl 1,000 mls @ 100 mls/hr 07/23/17 20:00 11:22 IV 100 mls/hr .Q10H [facility] Administration Metronidazole 500 mg in 100 mls @ 100 mls/hr 07/24/17 05:00 07/25/17 14:40 Flagyl 500 Mg/100 Ml IV 100 mls/hr Q8HR [facility] Administration Acetaminophen 100 mls @ 400 mls/hr 07/23/17 19:43 07/25/17 12:24 Ofirmev IV Infused Q6HR PRN Infusion PAIN Piperacillin Sod/Tazobactam 100 mls @ 200 mls/hr 07/24/17 05:00 07/25/17 14: 40 Sod 3.375 gm/ Sodium Chloride IV 200 mls/hr Q8HR [facility] Administration Ketorolac Tromethamine 15 mg 07/23/17 19:49 07/25/17 08:10 Toradol Inj IVP 07/28/17 20:59 15 mg BID PRN Administration PAIN Loratadine 10 mg 07/24/17 21:00 07/25/17 08:10 Claritin PO 10 mg BID [facility] Administration Morphine Sulfate 4 mg 07/23/17 19:37 07/25/17 11:21 Morphine (Carpuject) IVP 4 mg Q2HR PRN Administration Pain 8 to 10 Ondansetron HCl 4 mg 07/23/17 19:37 07/25/17 15:31 Zofran Inj IVP 4 mg Q6HR PRN Administration Nausea / Vomiting Pantoprazole Sodium 40 mg 07/23/17 19:37 07/25/17 06:15 Protonix IVP 40 mg QDAC [facility] Administration Polyethylene Glycol 17 gm 07/24/17 09:00 07/25/17 08:11 Miralax PO Not Given DAILY [facility] Sodium Chloride 10 ml 07/23/17 19:37 07/25/17 08:10 Normal Saline Flush 0.9% IVP 10 ml PRN PRN Administration NEEDED PER PROVIDER ORDERS Sodium Chloride 10 ml 07/23/17 22:00 07/25/17 14:40 Normal Saline Flush 0.9% IVP 10 ml Q8HR [facility] Administration - Physical Exam General Appearance: positive: Mild distress (Secondary to increased pain.) Eyes Bilateral: positive: No lid inflammation, Conjunctivae nml, No scleral icterus Neck: positive: Trachea midline Respiratory: positive: Chest non-tender, No respiratory distress, Breath sounds nml Cardiovascular: positive: Regular rate & rhythm Abdomen: positive: Tenderness (Slight suprapubically.) Skin: positive: Color nml Extremities: positive: Nml appearance Neurologic/Psychiatric: positive: Oriented x3 Impression/Plan - Problem List Problem List: Hospital day 2 for acute diverticulitis with microperforation Continue IV antibiotics and clear liquid diet as tolerated. Continue IV fluids to ensure that the patient does not get dehydrated. I explained to the patient that it is absolutely necessary that he ambulate in the halls at least 3 times a day and much much more. I reiterated our plan of slow improvement with the IV antibiotics and colonoscopy in 6 weeks time followed by elective sigmoid resection for recurrent diverticulitis. I will continue to follow the patient in the off chance that urgent surgery is necessary. It appears that our current plan of IV antibiotics and bowel rest is working in I do not see any reason why it should not continue to work. I asked that the patient contact me with any surgical questions and or concerns and he stated that he would.
[2017-07-26] MEDS: ACETAMINOPHEN 1,000 MG/100 ML 100 ML IV PRN ×2 (00:14→16:21)
[2017-07-26] MEDS: MORPHINE 2 MG/ML CARPUJECT IVP PRN ×3 (02:24→06:48)
[2017-07-26] MEDS: SODIUM CHLORIDE FLUSH 0.9% 10 ML SYRINGE IVP PRN ×2 (04:37→06:49)
[2017-07-26] MEDS: PIPERACILLIN/TAZOBACTAM 3.375 GM in SODIUM CHLORIDE 0.9% MINIBAG 100 ML IV SCH ×3 (05:08→23:04)
[2017-07-26 05:14] LABS: BASOPHILS % (AUTO) 0.2 %; HGB - HEMOGLOBIN 12.2 g/dL (14.0-18.0); LYMPHOCYTES # (AUTO) 0.9 10^3/uL (1.5-3.5); LYMPHOCYTES % (AUTO) 15.7 %; MEAN CORPUSCULAR HEMOGLOBIN 27.8 pg (27.0-31.0); MEAN CORPUSCULAR HGB CONC 33.3 g/dL (32.0-36.0); MEAN CORPUSCULAR VOLUME 83.3 fL (80.0-94.0); MEAN PLATELET VOLUME 8.4 fL (7.4-11.4); MONOCYTES # (AUTO) 0.3 10^3/uL (0.0-1.0); MONOCYTES % (AUTO) 5.2 %; NEUTROPHILS # (AUTO) 4.6 10^3/uL (1.5-6.6); NEUTROPHILS % (AUTO) 78.9 %; PLT - PLATELET COUNT 138 10^3/uL (130-450); RED BLOOD COUNT 4.39 10^6/uL (4.70-6.10); RED CELL DISTRIBUTION WIDTH 13.7 % (12.0-15.0); WHITE BLOOD COUNT 5.8 x10^3/uL (4.8-10.8)
[2017-07-26 05:16] LABS: ALBUMIN 3.1 g/dL (3.2-5.5); ALBUMIN/GLOBULIN RATIO 1.1 (1.0-2.2); CALCIUM 7.5 mg/dL (8.5-10.3); TOTAL PROTEIN 5.8 g/dL (6.7-8.2)
[2017-07-26] MEDS ORDERED: IOPAMIDOL-300 100 ML VIAL ONE (05:45)
[2017-07-26] MEDS ORDERED: IOPAMIDOL-300 50 ML VIAL ONE (05:46)
[2017-07-26] MEDS ORDERED: IOPAMIDOL-300 100 ML VIAL IVP ONE (06:41)
[2017-07-26] MEDS ORDERED: IOPAMIDOL-300 50 ML VIAL PO ONE (06:41)
[2017-07-26] MEDS: PANTOPRAZOLE 40 MG VIAL IVP SCH (06:48)
[2017-07-26] MEDS: ONDANSETRON 4 MG/2 ML VIAL IVP PRN (06:48)
[2017-07-26] MEDS: metroNIDAZOLE 500 MG/100 ML 500 MG/100 ML BAG IV SCH ×3 (06:49→21:27)
[2017-07-26] MEDS: SODIUM CHLORIDE FLUSH 0.9% 10 ML SYRINGE IVP SCH ×3 (06:49→22:18)
--- NOTE | 2017-07-26 07:00 | CT Preliminary Report ---
Exam: CT ABDOMEN/PELVIS W/ IMPRESSION: 1. Worsening subacute mid sigmoid colon diverticulitis with increasing inflammatory changes. Increase d extraluminal gas and fluid but without drainable organized collection seen. 2. Very small hiatal hernia. Enteric contrast in the distal esophagus may be reflux. [facility] SITE ID: [id number]
--- NOTE | 2017-07-26 07:00 | CT Report ---
EXAM: CT ABDOMEN AND PELVIS EXAM DATE: 07/26/2017 06:45 AM. CLINICAL HISTORY: Nausea, vomiting, pain. COMPARISONS: 07/23/2017 TECHNIQUE: Routine helical CT imaging was performed through the abdomen and pelvis. IV contrast: Yes . Enteric contrast: Yes. Reconstructions: Coronal and sagittal. In accordance with CT protocol optimization, one or more of the following dose reduction techniques w ere utilized for this exam: automated exposure control, adjustment of mA and/or KV based on patient s ize, or use of iterative reconstructive technique. FINDINGS: Lung Bases: Very small hiatal hernia. Enteric contrast in the distal esophagus may be reflux. Trace l eft pleural effusion and adjacent atelectasis. Liver: Unremarkable. No suspicious masses. Gallbladder/Bile Ducts: Unremarkable. Spleen: Unremarkable. Pancreas: Unremarkable. Adrenal Glands: Unremarkable. Kidneys: Unremarkable. No suspicious masses or hydronephrosis. Peritoneal Cavity/Bowel: Worsening subacute mid sigmoid colon cellulitis with increased surrounding i nflammatory changes and areas of luis miguel peritonitis. Axial images 66 through 69, there is small right pericolonic fluid and gas pocket measuring approximately 2 x 2 x 3 cm. This does not appear organized or drainable. Additionally, there is a small amount of loculated fluid in the right paracolic gutter . No drainable abscess seen. There is mild secondary inflammation of the adjacent small bowel loops i n the pelvis without evidence of obstruction. Pelvic Organs: Bladder and prostate appear unremarkable without evidence of a colovesicular fistula. Vasculature: No aneurysms or other significant abnormality. Bones: No significant abnormality. Other: None. IMPRESSION: 1. Worsening subacute mid sigmoid colon diverticulitis with increasing inflammatory changes. Increase d extraluminal gas and fluid but without drainable organized collection seen. 2. Very small hiatal hernia. Enteric contrast in the distal esophagus may be reflux. [facility] Referring Provider Line: [phone] SITE ID: [id number]
--- NOTE | 2017-07-26 07:37 | PROVIDER PROGRESS NOTE ---
Subjective - General Admit Date: 07/23/17 - Review of Systems General: positive: Other (Sleeping comfortably at 0700. I did not wake him. Now awake at 0810. Vomited once last night and spike a temperature to 39. States he feels better - but just woke up.) HEENT: positive: No symptoms Pulmonary: positive: No symptoms Cardiovascular: positive: No symptoms Gastrointestinal: positive: Abdominal pain (More on right pelvis than left.), Flatus (Still passing gas but had a "wet one" that forced him to throw out his shorts. I explained that this is not unexpected.) Genitourinary: positive: No symptoms Musculoskeletal: positive: No symptoms Skin: positive: No symptoms Psychiatric: positive: No symptoms Objective - Patient Data Reviewed Vital Signs: Yes Vital Signs: Vital Signs x48h Temp Pulse Resp BP Pulse Ox 07/26/17 04:30 36.7 C 07/26/17 00:06 98 16 124/77 94 07/26/17 00:00 39.0 C H Intake & Output: Intake and Output Totals x24h 07/24/17 07/25/17 07/26/17 23:59 23:59 23:59 Intake Total 3493.333 3835.000 2400 Output Total 1250 1320 450 Balance 2243.333 2515.000 1950 - Lab Results Lab Results: 07/26/17 04:41 07/26/17 04:41 Other Lab Results: Lab Results x24hrs 07/26/17 07/26/17 Range/Units 04:41 04:41 WBC 5.8 (4.8-10.8) x10^3/uL RBC 4.39 L (4.70-6.10) 10^6/uL Hgb 12.2 L (14.0-18.0) g/dL Hct 36.6 L (42.0-52.0) % MCV 83.3 (80.0-94.0) fL MCH 27.8 (27.0-31.0) pg MCHC 33.3 (32.0-36.0) g/dL RDW 13.7 (12.0-15.0) % Plt Count 138 (130-450) 10^3/uL MPV 8.4 (7.4-11.4) fL Neut # 4.6 (1.5-6.6) 10^3/uL Lymph # 0.9 L (1.5-3.5) 10^3/uL Newton # 0.3 (0.0-1.0) 10^3/uL Eos # 0.0 (0.0-0.7) 10^3/uL Baso # 0.0 (0.0-0.1) 10^3/uL Absolute Nucleated RBC 0.00 x10^3/uL Nucleated RBC % 0.0 /100WBC Sodium 136 (135-145) mmol/L Potassium 3.8 (3.5-5.0) mmol/L Chloride 103 (101-111) mmol/L Carbon Dioxide 26 (21-32) mmol/L Anion Gap 7.0 (6-13) BUN 6 (6-20) mg/dL Creatinine 1.0 (0.6-1.2) mg/dL Estimated GFR (MDRD) 79 L (>89) Glucose 112 H (70-100) mg/dL Calcium 7.5 L (8.5-10.3) mg/dL Total Bilirubin 1.0 (0.2-1.0) mg/dL AST 16 (10-42) IU/L ALT 15 (10-60) IU/L Alkaline Phosphatase 46 (42-121) IU/L Total Protein 5.8 L (6.7-8.2) g/dL Albumin 3.1 L (3.2-5.5) g/dL Globulin 2.7 (2.1-4.2) g/dL Albumin/Globulin Ratio 1.1 (1.0-2.2) - Imaging Results Radiology Imaging: positive: Prelim report reviewed, Final report received, EMP read indepedently - Current Medications Current Medications: Current Medications Generic Name Dose Route Start Last Admin Trade Name Freq PRN Reason Stop Dose Admin Enoxaparin Sodium 40 mg 07/24/17 09:00 07/25/17 08:11 Lovenox SUBQ Not Given DAILY [facility] Potassium Chloride/Dextrose/Sod Cl 1,000 mls @ 100 mls/hr 07/23/17 20:00 05:02 IV Infused .Q10H [facility] Infusion Metronidazole 500 mg in 100 mls @ 100 mls/hr 07/24/17 05:00 07/26/17 06:49 Flagyl 500 Mg/100 Ml IV 100 mls/hr Q8HR [facility] Administration Acetaminophen 100 mls @ 400 mls/hr 07/23/17 19:43 07/26/17 00:43 Ofirmev IV Infused Q6HR PRN Infusion PAIN Piperacillin Sod/Tazobactam 100 mls @ 200 mls/hr 07/24/17 05:00 07/26/17 05: 39 Sod 3.375 gm/ Sodium Chloride IV Infused Q8HR [facility] Infusion Ketorolac Tromethamine 15 mg 07/23/17 19:49 07/25/17 08:10 Toradol Inj IVP 07/28/17 20:59 15 mg BID PRN Administration PAIN Loratadine 10 mg 07/24/17 21:00 07/25/17 20:53 Claritin PO 10 mg BID [facility] Administration Morphine Sulfate 4 mg 07/23/17 19:37 07/26/17 06:48 Morphine (Carpuject) IVP 4 mg Q2HR PRN Administration Pain 8 to 10 Ondansetron HCl 4 mg 07/23/17 19:37 07/26/17 06:48 Zofran Inj IVP 4 mg Q6HR PRN Administration Nausea / Vomiting Pantoprazole Sodium 40 mg 07/23/17 19:37 07/26/17 06:48 Protonix IVP 40 mg QDAC [facility] Administration Polyethylene Glycol 17 gm 07/24/17 09:00 07/25/17 08:11 Miralax PO Not Given DAILY [facility] Sodium Chloride 10 ml 07/23/17 19:37 07/26/17 06:49 Normal Saline Flush 0.9% IVP 10 ml PRN PRN Administration NEEDED PER PROVIDER ORDERS Sodium Chloride 10 ml 07/23/17 22:00 07/26/17 06:49 Normal Saline Flush 0.9% IVP 10 ml Q8HR [facility] Administration - Physical Exam General Appearance: positive: No acute distress Eyes Bilateral: positive: No lid inflammation, Conjunctivae nml, No scleral icterus Neck: positive: Trachea midline Respiratory: positive: Chest non-tender, No respiratory distress, Breath sounds nml Cardiovascular: positive: Regular rate & rhythm Abdomen: positive: Nml bowel sounds, Tenderness (More in the right pelvis than the left pelvis. No peritoneal firmess.) Skin: positive: Color nml Extremities: positive: Non-tender, Nml appearance Neurologic/Psychiatric: positive: Oriented x3 Impression/Plan - Problem List Problem List: Hospital day 3 for acute diverticulitis Afebrile. No peritoneal findings. Unfortunately the CT scan looks worse and the patient spiked a temperature last night. One episode of emesis but patient is continuing to pass gas. His WBC is normal without a left shift. Clinically not obviously septic. The debate is operate based on radiographic findings and give the patient a temporary colostomy versus do not operate because the clinical and lab picture does not mandate it and watch for improvement or organization of the pelvic process to the point that it is drainable. I will go the clinical route right now but watch the patient closely for any signs of clinical deterioration. Discussed with the patient. I discussed this with Iglesia Weston.
[2017-07-26] MEDS: POLYETHYLENE GLYCOL 3350 17 GM PACKET PO SCH (08:16)
[2017-07-26] MEDS: ENOXAPARIN 40 MG/0.4 ML SYRINGE SUBQ SCH (09:00)
[2017-07-26] MEDS: LORATADINE 10 MG TABLET PO SCH ×2 (09:00→21:27)
[2017-07-26] MEDS: SODIUM CHLORIDE 0.9% 1,000 ML IV SCH ×2 (09:00→23:04)
--- NOTE | 2017-07-26 10:41 | PROVIDER PROGRESS NOTE ---
Subjective - Prog Note Date Prog Note Date: 07/26/17 Prog Note Time: 08:00 - Subjective Pt reports feeling: Improved Subjective: Patient is seen ambulating in the halls several times today. He denies SOB, chest pain, less N/V and no new cough. Current Medications - Current Medications Current Medications: Active Medications Enoxaparin Sodium (Lovenox) 40 mg SUBQ DAILY [facility] Last Admin: 07/27/17 08:13 Dose: 40 mg Fluticasone Propionate (Flonase) 1 sprays GERRI PRN PRN PRN Reason: Allergies Metronidazole (Flagyl 500 Mg/100 Ml) 500 mg in 100 mls @ 100 mls/hr IV Q8HR [facility] Last Infusion: 07/27/17 07:42 Dose: Infused Acetaminophen (Ofirmev) 100 mls @ 400 mls/hr IV Q6HR PRN PRN Reason: PAIN Last Infusion: 07/26/17 17:18 Dose: Infused Piperacillin Sod/Tazobactam (Sod 3.375 gm/ Sodium Chloride) 100 mls @ 200 mls/ hr IV Q8HR [facility] Last Infusion: 07/27/17 07:34 Dose: Infused Promethazine HCl 25 mg/ Sodium (Chloride) 51 mls @ 100 mls/hr IV BID PRN PRN Reason: Nausea / Vomiting Sodium Chloride (Normal Saline 0.9%) 1,000 mls @ 83.333 mls/hr IV .Q12H [facility] Last Admin: 07/27/17 08:12 Dose: Not Given Ketorolac Tromethamine (Toradol Inj) 15 mg IVP BID PRN PRN Reason: PAIN Stop: 07/28/17 20:59 Last Admin: 07/27/17 08:16 Dose: 15 mg Loratadine (Claritin) 10 mg PO BID [facility] Last Admin: 07/27/17 08:12 Dose: 10 mg Morphine Sulfate (Morphine (Carpuject)) 4 mg IVP Q2HR PRN PRN Reason: Pain 8 to 10 Last Admin: 07/27/17 06:44 Dose: 4 mg Ondansetron HCl (Zofran Inj) 4 mg IVP Q6HR PRN PRN Reason: Nausea / Vomiting Last Admin: 07/26/17 06:48 Dose: 4 mg Pantoprazole Sodium (Protonix) 40 mg IVP QDAC [facility] Last Admin: 07/27/17 08:13 Dose: 40 mg Polyethylene Glycol (Miralax) 17 gm PO DAILY [facility] Last Admin: 07/27/17 08:04 Dose: Not Given Sodium Chloride (Normal Saline Flush 0.9%) 10 ml IVP PRN PRN PRN Reason: NEEDED PER PROVIDER ORDERS Last Admin: 07/27/17 08:16 Dose: 20 ml Sodium Chloride (Normal Saline Flush 0.9%) 10 ml IVP Q8HR [facility] Last Admin: 07/27/17 01:37 Dose: 10 ml Zolpidem Tartrate (Ambien) 5 mg PO QPM PRN PRN Reason: Insomnia Fluticasone [Flonase] 1 spray GERRI PRN PRN 07/23/17 Loratadine 1 tab PO BID 07/23/17 Omeprazole [PriLOSEC] 2 tab PO BID 07/23/17 raNITIdine [Zantac] 1 tab PO BID 07/23/17 Objective - Vital Signs/Intake & Output Reviewed Vital Signs: Yes Vital Signs: Vital Signs x48h Temp Pulse Resp BP Pulse Ox 07/26/17 07:59 36.9 C 87 18 123/73 94 07/26/17 04:30 36.7 C Intake & Output: Intake & Output 07/23/17 07/24/17 07/25/17 07/26/17 23:59 23:59 23:59 23:59 Intake Total 552.5 3493.333 3835.000 2500 Output Total 375 1250 1320 450 Balance 177.5 2243.333 2515.000 2049 - Objective General Appearance: positive: No acute distress, Alert ENT: positive: ENT inspection nml, Pharynx nml, Dry mucous membranes Neck: positive: Nml inspection, Thyroid nml, No JVD, Trachea midline Respiratory: positive: Chest non-tender, No respiratory distress, Breath sounds nml Cardiovascular: positive: Regular rate & rhythm, No murmur, No gallop Peripheral Pulses: 2+ Radial (R), 2+ Radial (L) Abdomen: positive: Tenderness, Guarding, Abnml bowel sounds Back: positive: Nml inspection Skin: positive: No rash, Warm, Dry Extremities: positive: Non-tender, Full ROM, Nml appearance, No pedal edema Neurologic/Psychiatric: positive: Oriented x3, CN's nml (2-12), Motor nml, Sensation nml, Depressed mood/affect Reflexes: Bicep (R): 3+, Bicep (L): 3+ - Lab Results Fish Bones: 07/27/17 05:25 07/27/17 05:25 Other Labs: Lab Results x24hrs 07/26/17 07/26/17 Range/Units 04:41 04:41 WBC 5.8 (4.8-10.8) x10^3/uL RBC 4.39 L (4.70-6.10) 10^6/uL Hgb 12.2 L (14.0-18.0) g/dL Hct 36.6 L (42.0-52.0) % MCV 83.3 (80.0-94.0) fL MCH 27.8 (27.0-31.0) pg MCHC 33.3 (32.0-36.0) g/dL RDW 13.7 (12.0-15.0) % Plt Count 138 (130-450) 10^3/uL MPV 8.4 (7.4-11.4) fL Neut # 4.6 (1.5-6.6) 10^3/uL Lymph # 0.9 L (1.5-3.5) 10^3/uL [place] # 0.3 (0.0-1.0) 10^3/uL Eos # 0.0 (0.0-0.7) 10^3/uL Baso # 0.0 (0.0-0.1) 10^3/uL Absolute Nucleated RBC 0.00 x10^3/uL Nucleated RBC % 0.0 /100WBC Sodium 136 (135-145) mmol/L Potassium 3.8 (3.5-5.0) mmol/L Chloride 103 (101-111) mmol/L Carbon Dioxide 26 (21-32) mmol/L Anion Gap 7.0 (6-13) BUN 6 (6-20) mg/dL Creatinine 1.0 (0.6-1.2) mg/dL Estimated GFR (MDRD) 79 L (>89) Glucose 112 H (70-100) mg/dL Calcium 7.5 L (8.5-10.3) mg/dL Total Bilirubin 1.0 (0.2-1.0) mg/dL AST 16 (10-42) IU/L ALT 15 (10-60) IU/L Alkaline Phosphatase 46 (42-121) IU/L Total Protein 5.8 L (6.7-8.2) g/dL Albumin 3.1 L (3.2-5.5) g/dL Globulin 2.7 (2.1-4.2) g/dL Albumin/Globulin Ratio 1.1 (1.0-2.2) - Diagnostic Imaging Diagnostic Imaging Results: positive: Final report reviewed Assessment/Plan - Problem List (1) Diverticulitis of colon with perforation Impression: An abdominal CT was performed and shows free air, likely caused by perforation without diffuse pneumoperitoneum or evidence of abscess. General surgery was consulted and Dr. Nelson has been seeing daily. No indication for procedures , although due to patient's progress of slow to improve, a repeat abdominal CT was ordered, which may be inconclusive as the patient has been improving from ambulation and has required less pain medication without vomiting. Plan: Continue IV antibiotic treatment, watch for signs of worsening condition. Qualifiers: Diverticulitis bleeding: without bleeding Qualified Code(s): K57.20 - Diverticulitis of large intestine with perforation and abscess without bleeding (2) Nausea Impression: Upon exam today patient admits to no further episodes of vomiting, denies hematemesis. Patient seems comfortable. Plan: Continue IV hydration, control pain and use antiemetics if needed. (3) Intractable lower abdominal pain Impression: Patient continues to have lower bilateral abdominal pain. This correlates to acute diverticulitis. The patient requires less pain medication and the ambulation has improved his overall condition. Plan: Treat with IV morphine, IV APAP and IV protonix.
[2017-07-26] MEDS: KETOROLAC 15 MG/ML VIAL IVP PRN (12:10)
[2017-07-27] MEDS: MORPHINE 2 MG/ML CARPUJECT IVP PRN ×2 (01:36→06:44)
[2017-07-27] MEDS: SODIUM CHLORIDE FLUSH 0.9% 10 ML SYRINGE IVP SCH ×3 (01:37→20:17)
[2017-07-27 06:00] LABS: BASOPHILS % (AUTO) 0.1 %; HGB - HEMOGLOBIN 11.8 g/dL (14.0-18.0); LYMPHOCYTES # (AUTO) 0.8 10^3/uL (1.5-3.5); LYMPHOCYTES % (AUTO) 10.2 %; MEAN CORPUSCULAR HEMOGLOBIN 27.8 pg (27.0-31.0); MEAN CORPUSCULAR HGB CONC 33.6 g/dL (32.0-36.0); MEAN CORPUSCULAR VOLUME 82.8 fL (80.0-94.0); MEAN PLATELET VOLUME 8.4 fL (7.4-11.4); MONOCYTES # (AUTO) 0.4 10^3/uL (0.0-1.0); MONOCYTES % (AUTO) 4.8 %; NEUTROPHILS % (AUTO) 84.9 %; PLT - PLATELET COUNT 161 10^3/uL (130-450); RED BLOOD COUNT 4.24 10^6/uL (4.70-6.10); RED CELL DISTRIBUTION WIDTH 13.6 % (12.0-15.0); WHITE BLOOD COUNT 8.3 x10^3/uL (4.8-10.8)
[2017-07-27 06:08] LABS: ALBUMIN 3.1 g/dL (3.2-5.5); ALBUMIN/GLOBULIN RATIO 1.1 (1.0-2.2); BILIRUBIN,TOTAL 1.2 mg/dL (0.2-1.0); CALCIUM 7.6 mg/dL (8.5-10.3); CREATININE 0.9 mg/dL (0.6-1.2); TOTAL PROTEIN 5.9 g/dL (6.7-8.2)
[2017-07-27] MEDS: metroNIDAZOLE 500 MG/100 ML 500 MG/100 ML BAG IV SCH ×3 (06:42→20:24)
[2017-07-27] MEDS: PIPERACILLIN/TAZOBACTAM 3.375 GM in SODIUM CHLORIDE 0.9% MINIBAG 100 ML IV SCH ×3 (06:50→20:26)
[2017-07-27] MEDS: POLYETHYLENE GLYCOL 3350 17 GM PACKET PO SCH (08:04)
[2017-07-27] MEDS: SODIUM CHLORIDE 0.9% 1,000 ML IV SCH (08:12)
[2017-07-27] MEDS: LORATADINE 10 MG TABLET PO SCH ×2 (08:12→20:17)
[2017-07-27] MEDS: ENOXAPARIN 40 MG/0.4 ML SYRINGE SUBQ SCH (08:13)
[2017-07-27] MEDS: PANTOPRAZOLE 40 MG VIAL IVP SCH (08:13)
[2017-07-27] MEDS: KETOROLAC 15 MG/ML VIAL IVP PRN (08:16)
[2017-07-27] MEDS: SODIUM CHLORIDE FLUSH 0.9% 10 ML SYRINGE IVP PRN (08:16)
[2017-07-27] MEDS: ACETAMINOPHEN 1,000 MG/100 ML 100 ML IV PRN ×2 (12:05→20:12)
--- NOTE | 2017-07-27 13:01 | PROVIDER PROGRESS NOTE ---
Subjective - Prog Note Date Prog Note Date: 07/27/17 Prog Note Time: 10:00 - Subjective Pt reports feeling: Improved Subjective: Laney does not feel well enough to return home due to ongoing abdominal pain and mild nausea. He denies chest pain, SOB, vomiting or a new cough. Current Medications - Current Medications Current Medications: Active Medications Enoxaparin Sodium (Lovenox) 40 mg SUBQ DAILY [facility] Last Admin: 07/27/17 08:13 Dose: 40 mg Fluticasone Propionate (Flonase) 1 sprays GERRI PRN PRN PRN Reason: Allergies Metronidazole (Flagyl 500 Mg/100 Ml) 500 mg in 100 mls @ 100 mls/hr IV Q8HR [facility] Last Infusion: 07/27/17 07:42 Dose: Infused Acetaminophen (Ofirmev) 100 mls @ 400 mls/hr IV Q6HR PRN PRN Reason: PAIN Last Infusion: 07/27/17 12:20 Dose: Infused Piperacillin Sod/Tazobactam (Sod 3.375 gm/ Sodium Chloride) 100 mls @ 200 mls/ hr IV Q8HR [facility] Last Infusion: 07/27/17 07:34 Dose: Infused Promethazine HCl 25 mg/ Sodium (Chloride) 51 mls @ 100 mls/hr IV BID PRN PRN Reason: Nausea / Vomiting Sodium Chloride (Normal Saline 0.9%) 1,000 mls @ 83.333 mls/hr IV .Q12H [facility] Last Admin: 07/27/17 08:12 Dose: Not Given Ketorolac Tromethamine (Toradol Inj) 15 mg IVP BID PRN PRN Reason: PAIN Stop: 07/28/17 20:59 Last Admin: 07/27/17 08:16 Dose: 15 mg Loratadine (Claritin) 10 mg PO BID [facility] Last Admin: 07/27/17 08:12 Dose: 10 mg Morphine Sulfate (Morphine (Carpuject)) 4 mg IVP Q2HR PRN PRN Reason: Pain 8 to 10 Last Admin: 07/27/17 06:44 Dose: 4 mg Ondansetron HCl (Zofran Inj) 4 mg IVP Q6HR PRN PRN Reason: Nausea / Vomiting Last Admin: 07/26/17 06:48 Dose: 4 mg Pantoprazole Sodium (Protonix) 40 mg IVP QDAC [facility] Last Admin: 07/27/17 08:13 Dose: 40 mg Polyethylene Glycol (Miralax) 17 gm PO DAILY [facility] Last Admin: 07/27/17 08:04 Dose: Not Given Sodium Chloride (Normal Saline Flush 0.9%) 10 ml IVP PRN PRN PRN Reason: NEEDED PER PROVIDER ORDERS Last Admin: 07/27/17 08:16 Dose: 20 ml Sodium Chloride (Normal Saline Flush 0.9%) 10 ml IVP Q8HR [facility] Last Admin: 07/27/17 01:37 Dose: 10 ml Zolpidem Tartrate (Ambien) 5 mg PO QPM PRN PRN Reason: Insomnia Fluticasone [Flonase] 1 spray GERRI PRN PRN 07/23/17 Loratadine 1 tab PO BID 07/23/17 Omeprazole [PriLOSEC] 2 tab PO BID 07/23/17 raNITIdine [Zantac] 1 tab PO BID 07/23/17 Objective - Vital Signs/Intake & Output Reviewed Vital Signs: Yes Vital Signs: Vital Signs x48h Temp Pulse Resp BP Pulse Ox 07/27/17 07:52 37.6 C H 95 18 128/78 94 Intake & Output: Intake & Output 07/24/17 07/25/17 07/26/17 07/27/17 23:59 23:59 23:59 23:59 Intake Total 3493.333 3835.000 3900.000 2308.886 Output Total 1250 1320 850 Balance 2243.333 2515.000 3050.000 2308.886 - Objective General Appearance: positive: No acute distress, Alert Eyes Bilateral: positive: Normal inspection, PERRL ENT: positive: ENT inspection nml, Pharynx nml, No signs of dehydration Neck: positive: Nml inspection, Thyroid nml, No JVD, Stiff neck Respiratory: positive: Chest non-tender, No respiratory distress, Breath sounds nml Cardiovascular: positive: Regular rate & rhythm, No murmur, No gallop Peripheral Pulses: 2+ Radial (R), 2+ Radial (L) Abdomen: positive: No organomegaly, Nml bowel sounds, Tenderness, Guarding Back: positive: Nml inspection Skin: positive: No rash, Warm, Dry, Pallor Extremities: positive: Non-tender, Full ROM, Nml appearance Neurologic/Psychiatric: positive: Oriented x3, CN's nml (2-12), Motor nml, Sensation nml Reflexes: Bicep (R): 3+, Bicep (L): 3+ - Lab Results Fish Bones: 07/27/17 05:25 07/27/17 05:25 Other Labs: Lab Results x24hrs 07/27/17 07/27/17 Range/Units 05:25 05:25 WBC 8.3 (4.8-10.8) x10^3/uL RBC 4.24 L (4.70-6.10) 10^6/uL Hgb 11.8 L (14.0-18.0) g/dL Hct 35.1 L (42.0-52.0) % MCV 82.8 (80.0-94.0) fL MCH 27.8 (27.0-31.0) pg MCHC 33.6 (32.0-36.0) g/dL RDW 13.6 (12.0-15.0) % Plt Count 161 (130-450) 10^3/uL MPV 8.4 (7.4-11.4) fL Neut # 7.0 H (1.5-6.6) 10^3/uL Lymph # 0.8 L (1.5-3.5) 10^3/uL [place] # 0.4 (0.0-1.0) 10^3/uL Eos # 0.0 (0.0-0.7) 10^3/uL Baso # 0.0 (0.0-0.1) 10^3/uL Absolute Nucleated RBC 0.02 x10^3/uL Nucleated RBC % 0.3 /100WBC Sodium 134 L (135-145) mmol/L Potassium 3.2 L (3.5-5.0) mmol/L Chloride 103 (101-111) mmol/L Carbon Dioxide 21 (21-32) mmol/L Anion Gap 10.0 (6-13) BUN 9 (6-20) mg/dL Creatinine 0.9 (0.6-1.2) mg/dL Estimated GFR (MDRD) 89 (>89) Glucose 88 (70-100) mg/dL Calcium 7.6 L (8.5-10.3) mg/dL Total Bilirubin 1.2 H (0.2-1.0) mg/dL AST 15 (10-42) IU/L ALT 14 (10-60) IU/L Alkaline Phosphatase 46 (42-121) IU/L Total Protein 5.9 L (6.7-8.2) g/dL Albumin 3.1 L (3.2-5.5) g/dL Globulin 2.8 (2.1-4.2) g/dL Albumin/Globulin Ratio 1.1 (1.0-2.2) - Diagnostic Imaging Diagnostic Imaging Results: positive: Final report reviewed Assessment/Plan - Problem List (1) Diverticulitis of colon with perforation Impression: An abdominal CT was performed and shows free air, likely caused by perforation without diffuse pneumoperitoneum or evidence of abscess. General surgery was consulted and Dr. Nelson has been seeing daily. No indication for procedures , although due to patient's progress of slow to improve, a repeat abdominal CT was ordered, which may be inconclusive as the patient has been improving from ambulation and has required less pain medication without vomiting. Plan: Continue IV antibiotic treatment, watch for signs of worsening condition. Qualifiers: Diverticulitis bleeding: without bleeding Qualified Code(s): K57.20 - Diverticulitis of large intestine with perforation and abscess without bleeding (2) Nausea Impression: Upon exam today patient admits to no further episodes of vomiting, denies hematemesis. Patient seems comfortable. Patient does not believe he can tolerate an advanced diet due to very mild nausea after oral intake. Plan: Continue IV hydration, control pain and use antiemetics if needed. (3) Intractable lower abdominal pain Impression: Patient continues to have lower bilateral abdominal pain. This correlates to acute diverticulitis. The patient requires less pain medication and the ambulation has improved his overall condition. Plan: Treat with IV morphine, IV APAP and IV protonix.
[2017-07-27] MEDS ORDERED: POTASSIUM CHLORIDE 20 MEQ TABLET PO SCH (13:05)
[2017-07-28] MEDS: KETOROLAC 15 MG/ML VIAL IVP PRN (04:05)
[2017-07-28] MEDS: SODIUM CHLORIDE FLUSH 0.9% 10 ML SYRINGE IVP PRN ×2 (04:06→06:48)
[2017-07-28] MEDS: SODIUM CHLORIDE FLUSH 0.9% 10 ML SYRINGE IVP SCH (05:42)
[2017-07-28] MEDS: metroNIDAZOLE 500 MG/100 ML 500 MG/100 ML BAG IV SCH (05:42)
[2017-07-28] MEDS: PIPERACILLIN/TAZOBACTAM 3.375 GM in SODIUM CHLORIDE 0.9% MINIBAG 100 ML IV SCH (06:47)
[2017-07-28] MEDS: PANTOPRAZOLE 40 MG VIAL IVP SCH (06:47)
[2017-07-28 07:46] LABS: BASOPHILS % (AUTO) 0.1 %; EOSINOPHILS % (AUTO) 0.5 %; HGB - HEMOGLOBIN 12.8 g/dL (14.0-18.0); LYMPHOCYTES # (AUTO) 1.1 10^3/uL (1.5-3.5); LYMPHOCYTES % (AUTO) 13.2 %; MEAN CORPUSCULAR HEMOGLOBIN 27.9 pg (27.0-31.0); MEAN CORPUSCULAR HGB CONC 33.8 g/dL (32.0-36.0); MEAN CORPUSCULAR VOLUME 82.7 fL (80.0-94.0); MONOCYTES # (AUTO) 0.5 10^3/uL (0.0-1.0); MONOCYTES % (AUTO) 6.3 %; NEUTROPHILS # (AUTO) 6.6 10^3/uL (1.5-6.6); NEUTROPHILS % (AUTO) 79.9 %; PLT - PLATELET COUNT 200 10^3/uL (130-450); RED CELL DISTRIBUTION WIDTH 13.6 % (12.0-15.0); WHITE BLOOD COUNT 8.3 x10^3/uL (4.8-10.8)
[2017-07-28 08:08] LABS: ALBUMIN 3.2 g/dL (3.2-5.5); ALBUMIN/GLOBULIN RATIO 0.9 (1.0-2.2); BILIRUBIN,TOTAL 1.1 mg/dL (0.2-1.0); CALCIUM 8.1 mg/dL (8.5-10.3); CREATININE 0.8 mg/dL (0.6-1.2); MAGNESIUM 1.9 mg/dL (1.7-2.8); TOTAL PROTEIN 6.8 g/dL (6.7-8.2)
--- NOTE | 2017-07-28 08:25 | DISCHARGE SUMMARY ---
"Discharge Summary Admit Date: 07/23/17 Discharge Date: 07/28/17 Discharging Provider: AMAYA Foster Primary Care Provider: Zac Vora Code Status: Attempt Resuscitation Condition at Discharge: Good Discharge Disposition: 01 Home, Self Care - DIAGNOSES Admission Diagnoses: Sepsis, unspecified organism (A41.9) Diverticulitis of large intestine with perforation and abscess without bleeding (K57.20) Nausea with vomiting, unspecified (R11.2) Lower abdominal pain, unspecified (R10.30) Discharge Diagnoses with Status of Each Condition: Perforation of sigmoid colon due to diverticulitis (K57.20) ongoing, treatment to continue at home using oral agents. Intractable lower abdominal pain (R10.30) improved, ongoing treatment. Nausea (R11.0) improved, anti-emetics. - HPI History of Present Illness: Laney Pemberton is a 52 year old male with limited past medical history except for previous diverticulitis in 2015 and GERD. He presented to the ED after he developed abdominal pain about 4 hours prior to coming to the ED. He was brought in by a private vehicle and accompanied by his . He developed a 10 out of 10 pain that was described as a sharp right lower quadrant abdominal discomfort with associated symptoms of nausea and fever. Once in the ED, the patient was noted to be tachycardic with heart rates in the 140's, febrile with a temp max of 39.3 C, and hypertensive with an elevated blood pressure of 130/ 100. An abdomen/pelvis CT showed a sigmoid diverticulitis with microperforation. The patient was started on Flagyl, Zosyn and IVFs. The case was discussed with Dr. Nelson, general surgery who agreed with conservative treatment. The patient will be admitted inpatient for symptom control and treatment of diverticulitis. - CONSULTS | PROCEDURES Consultations: General surgery, Dr. Nelson - HOSPITAL COURSE Hospital Course: The following problems/diagnoses were prevalent during this hospital stay: (1) Diverticulitis of colon with perforation- An abdominal CT was performed and shows free air, likely caused by perforation without diffuse pneumoperitoneum or evidence of abscess. General surgery was consulted and Dr. Nelson has been seeing daily. No indication for procedures, although due to patient's progress of slow to improve, a repeat abdominal CT was ordered, which may be inconclusive as the patient has been improving from ambulation and has required less pain medication without vomiting. Patient was continued on IV antibiotic treatment and was watched for signs of worsening condition. (2) Nausea- Upon exam today patient admits to no further episodes of vomiting, denies hematemesis. Patient seems comfortable. Patient does not believe he can tolerate an advanced diet due to very mild nausea after oral intake. Patient received continuous IV hydration, pain medications, and use antiemetics as needed. (3) Intractable lower abdominal pain- Patient continues to have lower bilateral abdominal pain. This correlates to acute diverticulitis. The patient requires less pain medication and the ambulation has improved his overall condition. Patient was treated with IV morphine, IV APAP and IV protonix. Disposition: On the morning of discharge, patient was very motivated to be on his way. A work excuse was given as per patient request. Medications were sent to patient's pharmacy of choice, and a hard-script for pain medications were given. Patient was encouraged to be sure to tolerate solid foods before leaving, but he left and stated he would do better at home. Dr. Nelson was updated in person. Patient was transported in stable condition via . - ALLERGIES Allergies/Adverse Reactions: Allergies Allergy/AdvReac Type Severity Reaction Status Date / Time lactose Allergy Unknown Verified 07/23/17 21:24 - MEDICATIONS Home Medications: Ambulatory Orders Medication Instructions Recorded Confirmed Fluticasone [Flonase] 1 spray GERRI PRN PRN 07/23/17 07/24/17 Loratadine 1 tab PO BID 07/23/17 07/23/17 Omeprazole [PriLOSEC] 2 tab PO BID 07/23/17 07/23/17 raNITIdine [Zantac] 1 tab PO BID 07/23/17 07/24/17 Ciprofloxacin HCl [Cipro] 500 mg PO BID 10 Days #20 tablet 07/28/17 Metronidazole [Flagyl] 500 mg PO Q8H 10 Days #30 tablet 07/28/17 Ondansetron Odt [Zofran Odt] 4 mg PO Q4H PRN #30 tablet 07/28/17 Saccharomyces Boulardii [Florastor] 250 mg PO BID 20 Days #40 capsule 07/28/17 oxyCODONE [Roxicodone] 5 mg PO Q4H PRN #25 tablet 07/28/17 - PHYSICAL EXAM AT DISCHARGE General Appearance: positive: No acute distress, Alert Eyes Bilateral: positive: Normal inspection, PERRL ENT: positive: ENT inspection nml, Pharynx nml, No signs of dehydration Neck: positive: Nml inspection, Thyroid nml, No JVD, Trachea midline Respiratory: positive: Chest non-tender, No respiratory distress, Breath sounds nml Cardiovascular: positive: Regular rate & rhythm, No murmur, No gallop Peripheral Pulses: positive: 2+ Abdomen: positive: Nml bowel sounds, Tenderness, Guarding, Other (mild tenderness with palpation to upper abdominal quadrants. Rounded, and soft.) Back: positive: Nml inspection Skin: positive: Color nml, No rash, Warm, Dry Extremities: positive: Non-tender, Full ROM, Nml appearance, No pedal edema Neurologic/Psychiatric: positive: Oriented x3, CN's nml (2-12), Motor nml, Sensation nml, Depressed mood/affect Reflexes: Bicep (R): 3+, Bicep (L): 3+ - LABS Result Diagrams: 07/28/17 07:35 07/28/17 07:35 - DIAGNOSTIC IMAGING Diagnostic Imaging Results: Final report reviewed Diagnostic Imaging Results Comments: EXAM: CT ABDOMEN AND PELVIS EXAM DATE: 07/23/2017 06:16 PM. CLINICAL HISTORY: RLQ abd pain. Acute onset. COMPARISONS: Noncontrast CT abdomen and pelvis 03/21/2010. TECHNIQUE: Routine helical CT imaging was performed through the abdomen and pelvis. IV contrast: ISOVUE 300 100mL. Enteric contrast: No. Reconstructions: Coronal and sagittal. In accordance with CT protocol optimization, one or more of the following dose reduction techniques were utilized for this exam: automated exposure control, adjustment of mA and/or KV based on patient size, or use of iterative reconstructive technique. FINDINGS: Lung Bases: Unremarkable. Liver: Normal. No masses. Gallbladder/Bile Ducts: Unremarkable. Spleen: Normal. Pancreas: Normal. Adrenal Glands: Normal. Kidneys: Tiny right lower pole hypodensity is too small to characterize but likely represents a small cyst.. No definite masses or hydronephrosis. Peritoneal Cavity/Bowel: No adenopathy or free air. The appendix is well visualized and normal. Substantial colonic diverticulosis again demonstrated. There is new focal wall thickening involving the mid sigmoid colon at and to the right of the midline, just above the level of the bladder, with new surrounding hazy infiltrative/ inflammatory change and trace fluid, consistent with acute diverticulitis. Multiple air-containing diverticula are seen in the area. However, there are at least 2 small foci of gas in the right pelvis just medial to the iliac vessels ( 3/72-74 and coronal images 34, 35) which appear more from the colon and are highly suspicious for small extraluminal foci which would suggest perforation. However, there is no evidence of more diffuse pneumoperitoneum. No evidence of abscess. Pelvic Organs: Normal. The bladder and visualized pelvic organs are within normal limits. Vasculature: No aneurysms or other significant abnormality. Bones: No significant abnormality. Other: Small fat-containing umbilical hernia redemonstrated. IMPRESSION: 1. Findings consistent with acute sigmoid diverticulitis. 2. There are couple of foci of gas which are most likely extraluminal suggesting perforation, without diffuse pneumoperitoneum or evidence of abscess. 3. Probable tiny right renal cyst. EXAM: CT ABDOMEN AND PELVIS EXAM DATE: 07/26/2017 06:45 AM. CLINICAL HISTORY: Nausea, vomiting, pain. COMPARISONS: 07/23/2017 TECHNIQUE: Routine helical CT imaging was performed through the abdomen and pelvis. IV contrast: Yes . Enteric contrast: Yes. Reconstructions: Coronal and sagittal. In accordance with CT protocol optimization, one or more of the following dose reduction techniques were utilized for this exam: automated exposure control, adjustment of mA and/or KV based on patient size, or use of iterative reconstructive technique. FINDINGS: Lung Bases: Very small hiatal hernia. Enteric contrast in the distal esophagus may be reflux. Trace left pleural effusion and adjacent atelectasis. Liver: Unremarkable. No suspicious masses. Gallbladder/Bile Ducts: Unremarkable. Spleen: Unremarkable. Pancreas: Unremarkable. Adrenal Glands: Unremarkable. Kidneys: Unremarkable. No suspicious masses or hydronephrosis. Peritoneal Cavity/Bowel: Worsening subacute mid sigmoid colon cellulitis with increased surrounding inflammatory changes and areas of luis miguel peritonitis. Axial images 66 through 69, there is small right pericolonic fluid and gas pocket measuring approximately 2 x 2 x 3 cm. This does not appear organized or drainable. Additionally, there is a small amount of loculated fluid in the right paracolic gutter. No drainable abscess seen. There is mild secondary inflammation of the adjacent small bowel loops in the pelvis without evidence of obstruction. Pelvic Organs: Bladder and prostate appear unremarkable without evidence of a colovesicular fistula. Vasculature: No aneurysms or other significant abnormality. Bones: No significant abnormality. Other: None. IMPRESSION: 1. Worsening subacute mid sigmoid colon diverticulitis with increasing inflammatory changes. Increased extraluminal gas and fluid but without drainable organized collection seen. 2. Very small hiatal hernia. Enteric contrast in the distal esophagus may be reflux. - FOLLOW UP Follow Up: Disposition: Home, Self Care Condition: Good Prescriptions: Ciprofloxacin HCl [Cipro] 500 mg PO BID 10 Days #20 tablet Metronidazole [Flagyl] 500 mg PO Q8H 10 Days #30 tablet Ondansetron Odt [Zofran Odt] 4 mg PO Q4H PRN #30 tablet PRN Reason: Nausea / Vomiting oxyCODONE [Roxicodone] 5 mg PO Q4H PRN #25 tablet PRN Reason: Pain Saccharomyces Boulardii [Florastor] 250 mg PO BID 20 Days #40 capsule Diet: Regular Activity Restrictions: No Restrictions Shower Restrictions: No Driving Restrictions: No Weight Bearing: Full Weight Additional Instructions or Follow Up instructions: You were treated for diverticulitis with micro perforations that improved after several days of IV antibiotics. You are prescribed ongoing oral antibiotics with a probiotic. Criteria for discharge include, normal white blood cell counts, normal vital signs, improved abdominal discomfort, and tolerance of oral intake. Your case was under constant review of general surgery, Dr. Nelson who would be happy to see you regarding this condition. Please plan on a colonoscopy in about 5-6 weeks. Please see your PCP within one week as a follow up to this stay. Rest and take it easy at home. Stick with easy to digest, soft foods for the next few days. If you develop a fever, uncontrolled nausea, vomiting, diarrhea or worsening abdominal pain, please go to the ED or your PCP. - TIME SPENT Time Spent in Discharge (Minutes): 45"
[2017-07-28 08:48] VITALS: BP 129/80
[2017-07-28] MEDS: LORATADINE 10 MG TABLET PO SCH (08:55)
[2017-07-28] MEDS: ENOXAPARIN 40 MG/0.4 ML SYRINGE SUBQ SCH (08:56)
[2017-07-28] MEDS: POLYETHYLENE GLYCOL 3350 17 GM PACKET PO SCH (08:56)
== END 2017-07-28 09:45 | disposition home or self-care (01) | DRG 392 ==
LOC: ED 17:16 → MS2 19:37
PROVIDERS: ADMIT Internal Medicine; ATTEND Nurse Practitioner
DX: K57.20 Diverticulitis of large intestine with perforation and abscess without bleeding (principal); K21.9 Gastro-esophageal reflux disease without esophagitis
CPT/HCPCS: 36415; 74177; 80048; 80053; 81001; 81003; 83605; 83690; 83735; 85025; 87086; 96361; 96365; 96375; 96376; 99283; 99285

== ENCOUNTER 2017-09-11 08:23 | Day surgery (SDC) | payer OTHER ==
[2017-09-11] MEDS ORDERED: LACTATED RINGERS 1,000 ML IV ONE (08:42)
[2017-09-11 09:15] LABS: BASOPHILS % (AUTO) 0.4 %; EOSINOPHILS # (AUTO) 0.2 10^3/uL (0.0-0.7); EOSINOPHILS % (AUTO) 2.2 %; HGB - HEMOGLOBIN 13.8 g/dL (14.0-18.0); LYMPHOCYTES # (AUTO) 1.7 10^3/uL (1.5-3.5); LYMPHOCYTES % (AUTO) 25.8 %; MEAN CORPUSCULAR HEMOGLOBIN 27.9 pg (27.0-31.0); MEAN CORPUSCULAR HGB CONC 33.9 g/dL (32.0-36.0); MEAN CORPUSCULAR VOLUME 82.3 fL (80.0-94.0); MEAN PLATELET VOLUME 7.6 fL (7.4-11.4); MONOCYTES # (AUTO) 0.4 10^3/uL (0.0-1.0); MONOCYTES % (AUTO) 6.5 %; NEUTROPHILS # (AUTO) 4.4 10^3/uL (1.5-6.6); NEUTROPHILS % (AUTO) 65.1 %; PLT - PLATELET COUNT 280 10^3/uL (130-450); RED BLOOD COUNT 4.94 10^6/uL (4.70-6.10); RED CELL DISTRIBUTION WIDTH 14.4 % (12.0-15.0); WHITE BLOOD COUNT 6.7 x10^3/uL (4.8-10.8)
[2017-09-11 09:23] LABS: CALCIUM 8.8 mg/dL (8.5-10.3); CREATININE 0.9 mg/dL (0.6-1.2)
[2017-09-11] MEDS ORDERED: MIDAZOLAM 2 MG/2 ML VIAL IVP ONE (10:11)
[2017-09-11] MEDS ORDERED: fentaNYL 250 MCG/5 ML VIAL IVP ONE (10:11)
[2017-09-11 11:26] VITALS: BP 124/83
== END 2017-09-11 08:24 | disposition home or self-care (01) ==
LOC: SDS 08:23
PROVIDERS: ATTEND Surgery
PROC: 0DJD8ZZ Inspection of Lower Intestinal Tract, Via Natural or Artificial Opening Endoscopic (ICD-10-PCS; principal; 2017-09-11 09:45)
DX: Z12.11 Encounter for screening for malignant neoplasm of colon (principal); K57.30 Diverticulosis of large intestine without perforation or abscess without bleeding; K64.8 Other hemorrhoids; Z86.010 Personal history of colon polyps; I10 Essential (primary) hypertension; E78.5 Hyperlipidemia, unspecified; G47.30 Sleep apnea, unspecified
CPT/HCPCS: 45378; 80048; 85025; 86850; 86900; 86901; J3010; J7120

== ENCOUNTER 2017-09-12 10:00 | Inpatient (IN) | payer OTHER ==
[2017-09-12] MEDS ORDERED: cefOXitin 2 GM in SODIUM CHLORIDE 0.9% MINIBAG 100 ML IV ONE (13:30)
[2017-09-12] MEDS ORDERED: LACTATED RINGERS 1,000 ML IV ONE ×4 (13:33→19:30)
[2017-09-12] MEDS ORDERED: BUPIVACAINE 0.5% PF 10 ML VIAL SUBQ ONE ×2 (16:53)
[2017-09-12] MEDS ORDERED: GLYCOPYRROLATE 1 MG/5 ML VIAL IVP ONE (17:18)
[2017-09-12] MEDS ORDERED: MORPHINE 10 MG/ML VIAL IVP ONE (17:18)
[2017-09-12] MEDS ORDERED: LIDOCAINE-MPF 2% 5 ML VIAL IM ONE (17:18)
[2017-09-12] MEDS ORDERED: ONDANSETRON 4 MG/2 ML VIAL IVP ONE (17:18)
[2017-09-12] MEDS ORDERED: ACETAMINOPHEN 1,000 MG/100 ML 100 ML IV ONE (17:18)
[2017-09-12] MEDS ORDERED: fentaNYL 250 MCG/5 ML VIAL IVP ONE (17:18)
[2017-09-12] MEDS ORDERED: ROCURONIUM 50 MG/5 ML VIAL IVP ONE (17:18)
[2017-09-12] MEDS ORDERED: NEOSTIGMINE 1 MG/1 ML 10 ML MDV IVP ONE (17:18)
[2017-09-12] MEDS ORDERED: PROPOFOL 200 MG/20 ML VIAL IVP ONE (17:18)
--- NOTE | 2017-09-12 20:19 | OPERATIVE REPORT ---
Operative Report - General Admit Date: 09/12/17 Planned Procedure: Laparoscopic sigmoidectomy (SILS) Pre-Op Diagnosis: Recurrent persistent diverticulitis Procedure Performed: Laparoscopic sigmoidectomy with colocolostomy (SILS with one additional 5 mm port) Post Op Diagnosis: Same - Procedure Note Primary Surgeon: Corey Nelson MD Secondary Surgeon: Crescencio Washington MD Anesthesia Provider: Corey Frey MD Anesthesia Technique: General ET tube, Local (30 mL 1/2% marcaine) IV Fluids (mL): 2,900 Estimated Blood Loss (mL): 300 Urine Output (mL): 150 Drain/Tube Type: Demetrio drain (19 Fr Demetrio drain in pelvis and LEFT abdominal wall) Complications: None. - Other Other Information/Narrative: OPERATIVE DESCRIPTION/REPORT: After verbal and written informed consent was obtained detailing the risks of infection, bleeding with all of its risks including transfusion, and the patient was brought to the operative suite and placed initially in the supine position on the operating room table and then once anesthetized in stirrups taking care to pad all extremities. Monitoring devices were applied along with TEDs and pneumatic compressive stockings. Care was taken to avoid pressure points. Prophylactic antibiotics were given. An adequate level of general endotracheal anesthesia was established by [name]. The abdomen was then prepped with ChloraPrep and draped in a sterile fashion. A "time in" then confirmed that the patient was identified with 3 identifiers (name, date and medical record number), the history and physical was in the chart, the signed consent confirming the procedure was in the chart, the patient was in the correct position, the aforementioned prophylactic measures were in place or given, we had the correct personnel and equipment to complete the procedure and that anesthesia, surgery and nursing were given an opportunity to express any concerns. The initial incision was at the umbilicus and taken inferiorly for 5 cm. Dissection to the linea alba was completed using blunt dissection. The linea alba was grasped with a Teressa and incised. In a similar manner the peritoneum was grasped and incised using Metzenbaum scissors. In this location, a SILS port with one 12 mm port and two 10 mm ports was placed. The abdominal cavity was insufflated with carbon dioxide to steady-state pressure of 15 mmHg. The patient was then placed in a rather steep Trendelenberg position with the right lateral decubitus tilt and a medial to lateral approach was employed. The interface of the mesentary and the retroperitoneum was attempted to be opened first with Ligasure but when this could not be accomplished due to the thick nature of the mesentery I transitioned to Bovie electrocautery. It became clear that the thickened and inflamed mesentery would preclude good visualizationof the left ureter and mesenteric vessels if I persisted on a medial to lateral approach. As such, I transitioned to a lateral to medial approach. The LigaSure and Bovie electrocautery were used interchangeably to dissect the white line of Toldt on the left-hand side. There were some very dense adhesions to the lateral wall in the pelvis, but we were able to see the left ureter without a doubt and obviously made a point of leaving it in place. There were several "S " turns there were no doubt inflammatory and adhesive in nature in the distal sigmoid colon. As we freed up the lateral attachments it straightened some of these "S" turns and allowed for me to hold the colon anteriorly along the abdominal wall thus permitting dissection of the mesentery. With some traction and countertraction the inferior mesenteric artery (RAHAT) came into view, as well as two avascular mesenteric windows, above and below the RAHAT. The RAHAT was circumferentially isolated. Through the inferior avascular window the left ureter was also seen and carefully preserved. These windows were used for retraction lifting the mesentary to the anterior abdominal wall so as to minimize trauma to the tissues. With the RAHAT and IMV skeletonized and the left ureter clearly and safely away from the dissection the RAHAT and IMV were ligated with repeated application of the Ligasure. This dissection continued inferiorly through increasing and exceedingly dense adhesions. Another "S turn was encountered in the pelvis and with a lateral to medial dissection, again taking care not to injure the ureter, we were able to "straighten" the colon to allow for dissection from the pelvic side brandt. It was during this dissection that another 5 mm port was placed in the right lower quadrant both to help with the dissection and to place a drain at the conclusion of the case. I decided to place the drain (at the conclusion) due to the large amount of inflammation ( diverticulitis and peridiverticulitis). The proposed proximal transection point was then mobilized into the pelvis and noted to reach into the pelvis without any tension. I was satisfied the the anastamosis would be able to be accomplished without any tension on the anastamosis. The distal margin of the transection was determined and the colon was transected at this point with 4 application of the endostapler using a GI load. The distal colon was then grasped with an endoBabcock. After releasing the insufflation, the SILS port was removed and I attempted to pass the distal colon margin up to the umbilical incision with the endoBabcok but it fell off leaving me to reach into the abdomen to grasp the transected colon. The colon was grasped and gently brought out through the skin incision. The proximal point of transection was determined and a reusable automatic pursestring device was placed across the colon and the purse-string created with the passage of a 3 -0 Prolene on a Norm needle through the device. The bowel was transected with a scalpel and sent off the operative field to be sent to pathology. The purse- string was opened and a 28 mm anvil from an EEA stapler placed in the open end and the pursestring tied tight around the post. This was then dropped into the abdomen. The SILS port was replaced and the pneumoperitoneum re-established. With the pneumoperitoneum re-established Dr. Washington placed the EEA stapler transanally with the aid of a water soluble lubricant and the spike brought out under direct vision. The post of the anvil was then placed over the spike and the stapler screwed down tight and fired thus creating the colocolostomy. With the pelvis filled with sterile saline, the rectum was filled with air using a proctoscope and no leak of air was noted. Satisfied that there was no leak, the saline was removed. The anastamosis was visually checked fort a leak and there was none. A 19 Luxembourger Demetrio drain was then inserted through the 5 mm port in the right lower quadrant, the port removed, and the drain laparoscopically directed into the pelvis and up along the left gutter. This was secured to the skin using a 3-0 nylon which was Jitendra-sandaled about the drain. There was no bleeding noted. The pneumoperitoneum was released and the SILS port was removed. The fascia was reapproximated with a running 0 PDS suture. The fascia and skin were injected with 1/2% Marcaine. Meticulous hemostasis in the subcutaneous tissues was obtained using Bovie electrocautery. The skin incision was approximated using skin anali. At this point a time out was performed that confirmed that all the counts were correct, the procedure that was performed, the blood loss, the IV fluids administered, and the patients condition. The prep was washed off and Benzoin and steristrips were applied. Having tolerated the procedure well, the patient was subsequently extubated and taken to recovery room in good and stable condition. [employer] disclaimer: This document was created in part using voice recognition technology. Because of the inherent limitations of the system ([employer]'s [employer] Dictate user manual states that the licensee understands that speech recognition is a statistical process and that recognition errors are inherent in the process), occasional same sounding word substitutions and grammatical errors do occur and persist despite proofreading. Please read this document for context.
[2017-09-12] MEDS: ONDANSETRON 4 MG/2 ML VIAL IVP PRN (20:34)
[2017-09-12] MEDS ORDERED: ERTAPENEM 1 GM in SODIUM CHLORIDE 0.9% MINIBAG 100 ML IV SCH (21:00)
[2017-09-12] MEDS ORDERED: PROMETHAZINE 25 MG/1 ML VIAL ONE (21:24)
[2017-09-12] MEDS: LACTATED RINGERS 1,000 ML IV SCH (21:37)
[2017-09-12] MEDS: ACETAMINOPHEN 1,000 MG/100 ML 100 ML IV SCH (21:41)
[2017-09-13] MEDS: SODIUM CHLORIDE FLUSH 0.9% 10 ML SYRINGE IVP PRN ×4 (00:15→06:34)
[2017-09-13] MEDS: MORPHINE 2 MG/ML SYRINGE IVP PRN ×9 (00:15→23:47)
[2017-09-13] MEDS: ONDANSETRON 4 MG/2 ML VIAL IVP PRN (01:55)
[2017-09-13] MEDS: SODIUM CHLORIDE FLUSH 0.9% 10 ML SYRINGE IVP SCH ×4 (02:23→23:49)
[2017-09-13] MEDS: ACETAMINOPHEN 1,000 MG/100 ML 100 ML IV SCH ×3 (05:18→18:47)
[2017-09-13] MEDS: PANTOPRAZOLE 40 MG VIAL IVP SCH (06:34)
--- NOTE | 2017-09-13 08:35 | PROVIDER PROGRESS NOTE ---
Subjective - General Admit Date: 09/12/17 Procedure Date: 09/12/17 Post Op Days: 1 Procedure Performed: SILS laparoscopic sigmoidectomy with colocolostomy and placement drain - Review of Systems Wound/Incisions: positive: Dressing dry and intact Drain Type: Demetrio 19 Fr Drain Output Description: Serosanguinous Approximate mls Output: 60 General: positive: No symptoms HEENT: positive: No symptoms Pulmonary: positive: No symptoms Cardiovascular: positive: No symptoms Gastrointestinal: positive: Abdominal pain (Incisional.). negative: Nausea, Vomiting, Flatus Genitourinary: positive: No symptoms (Yung to come out this morning.) Musculoskeletal: positive: No symptoms Skin: positive: No symptoms Psychiatric: positive: No symptoms Objective - Patient Data Reviewed Vital Signs: Yes Vital Signs: Vital Signs x48h Temp Pulse Resp BP Pulse Ox 09/13/17 04:05 36.4 C L 72 18 115/83 H 100 Weight: Weight 09/11/17 09/12/17 09/13/17 23:59 23:59 23:59 Weight (kg) 67.7 kg Intake & Output: Intake and Output Totals x24h 09/11/17 09/12/17 09/13/17 23:59 23:59 23:59 Intake Total 200 487.5 Output Total 390 1360 Balance -190 -872.5 - Lab Results Other Lab Results: Lab Results x24hrs 09/13/17 09/13/17 Range/Units 06:41 00:13 POC Whole Bld Glucose 118 H 154 H (70 - 100) mg/dL - Current Medications Current Medications: Current Medications Generic Name Dose Route Start Last Admin Trade Name Freq PRN Reason Stop Dose Admin Ertapenem 1 gm/ Sodium 100 mls @ 200 mls/hr 09/12/17 21:00 09/12/17 23:03 Chloride IV 09/13/17 20:59 Infused Q24H KALYN Infusion Lactated Ringer's 1,000 mls @ 50 mls/hr 09/12/17 21:00 09/13/17 05:39 Lr IV 50 mls/hr .Q20H KALYN Infusion Acetaminophen 100 mls @ 400 mls/hr 09/12/17 21:00 09/13/17 05:37 Ofirmev IV Infused Q6H KALYN Infusion Morphine Sulfate 2 mg 09/12/17 20:27 09/13/17 05:07 Morphine IVP 2 mg Q2H PRN Administration PAIN Ondansetron HCl 4 mg 09/12/17 20:28 09/13/17 01:55 Zofran Inj IVP 4 mg Q6H PRN Administration Nausea / Vomiting Pantoprazole Sodium 40 mg 09/13/17 07:00 09/13/17 06:34 Protonix IVP 40 mg QDAC KALYN Administration Sodium Chloride 10 ml 09/13/17 01:00 09/13/17 02:23 Normal Saline Flush 0.9% IVP 10 ml 0100,0900,1700 KALYN Administration Sodium Chloride 10 ml 09/12/17 20:28 09/13/17 06:34 Normal Saline Flush 0.9% IVP 10 ml PRN PRN Administration NEEDED PER PROVIDER ORDERS - Physical Exam Wound/Incisions: positive: Dressing dry and intact General Appearance: positive: No acute distress Eyes Bilateral: positive: No lid inflammation, Conjunctivae nml, No scleral icterus ENT: positive: Dry mucous membranes Neck: positive: Trachea midline Respiratory: positive: Chest non-tender, No respiratory distress, Breath sounds nml Cardiovascular: positive: Regular rate & rhythm Abdomen: positive: Tenderness (Incisional.). negative: Nml bowel sounds Skin: positive: Color nml Extremities: positive: Nml appearance Neurologic/Psychiatric: positive: Oriented x3 Impression/Plan - Problem List Problem List: D1 s/p SILS sigmoidectomy with colocolostomy and placement drain. ERAS protocol ordered and patient is "on board." Clear liquid diet ordered. Will try and minimize opiates. Ambulation and activity is foster and patient understands and wants to do as much as he can. Still on track to be discharge prior to 96 hours.
[2017-09-13] MEDS: ENOXAPARIN 40 MG/0.4 ML SYRINGE SUBQ SCH (09:06)
[2017-09-13] MEDS: oxyCOD/ACETAMIN 5 MG/325 MG TABLET PO PRN ×3 (10:19→22:22)
[2017-09-13] MEDS: LACTATED RINGERS 1,000 ML IV SCH (17:57)
[2017-09-13] MEDS ORDERED: CALCIUM CARBONATE CHEW 500 MG TABLET PO SCH (19:36)
[2017-09-13] MEDS ORDERED: CALCIUM CARBONATE CHEW 500 MG TABLET PO PRN (19:36)
[2017-09-14] MEDS: ACETAMINOPHEN 1,000 MG/100 ML 100 ML IV SCH ×5 (01:03→23:42)
[2017-09-14] MEDS: oxyCOD/ACETAMIN 5 MG/325 MG TABLET PO PRN ×5 (05:21→23:41)
[2017-09-14] MEDS: SODIUM CHLORIDE FLUSH 0.9% 10 ML SYRINGE IVP PRN ×2 (06:25→13:38)
[2017-09-14] MEDS: PANTOPRAZOLE 40 MG VIAL IVP SCH (06:26)
[2017-09-14] MEDS: ENOXAPARIN 40 MG/0.4 ML SYRINGE SUBQ SCH (09:51)
[2017-09-14] MEDS: MORPHINE 2 MG/ML SYRINGE IVP PRN ×4 (09:51→20:59)
[2017-09-14] MEDS: SODIUM CHLORIDE FLUSH 0.9% 10 ML SYRINGE IVP SCH ×3 (09:52→23:42)
[2017-09-14] MEDS: LACTATED RINGERS 1,000 ML IV SCH (14:37)
[2017-09-15] MEDS: oxyCOD/ACETAMIN 5 MG/325 MG TABLET PO PRN ×2 (03:37→08:47)
[2017-09-15] MEDS: SODIUM CHLORIDE FLUSH 0.9% 10 ML SYRINGE IVP PRN (06:15)
[2017-09-15] MEDS: PANTOPRAZOLE 40 MG VIAL IVP SCH (06:15)
[2017-09-15] MEDS: ACETAMINOPHEN 1,000 MG/100 ML 100 ML IV SCH (06:59)
[2017-09-15 08:04] LABS: BASOPHILS % (AUTO) 0.4 %; EOSINOPHILS # (AUTO) 0.2 10^3/uL (0.0-0.7); EOSINOPHILS % (AUTO) 2.7 %; HGB - HEMOGLOBIN 11.4 g/dL (14.0-18.0); LYMPHOCYTES # (AUTO) 1.6 10^3/uL (1.5-3.5); LYMPHOCYTES % (AUTO) 17.5 %; MEAN CORPUSCULAR HEMOGLOBIN 28.3 pg (27.0-31.0); MEAN CORPUSCULAR HGB CONC 34.2 g/dL (32.0-36.0); MEAN PLATELET VOLUME 7.4 fL (7.4-11.4); MONOCYTES # (AUTO) 0.6 10^3/uL (0.0-1.0); MONOCYTES % (AUTO) 7.1 %; NEUTROPHILS # (AUTO) 6.5 10^3/uL (1.5-6.6); NEUTROPHILS % (AUTO) 72.3 %; PLT - PLATELET COUNT 214 10^3/uL (130-450); RED BLOOD COUNT 4.04 10^6/uL (4.70-6.10); RED CELL DISTRIBUTION WIDTH 14.2 % (12.0-15.0); WHITE BLOOD COUNT 8.9 x10^3/uL (4.8-10.8)
[2017-09-15 08:12] LABS: CALCIUM 8.3 mg/dL (8.5-10.3); CREATININE 0.8 mg/dL (0.6-1.2)
--- NOTE | 2017-09-15 08:38 | PROVIDER PROGRESS NOTE ---
Subjective - General Admit Date: 09/12/17 Procedure Date: 09/12/17 Post Op Days: 3 Procedure Performed: SILS laparoscopic sigmoidectomy with colocolostomy and placement drain - Review of Systems Wound/Incisions: positive: Dressing dry and intact Drain Type: Demetrio 19 Fr Drain Output Description: Serosanguinous Approximate mls Output: 60 Gastrointestinal: positive: Flatus, Other (small stool) Genitourinary: positive: No symptoms (Yung to come out this morning.) Musculoskeletal: positive: No symptoms Skin: positive: No symptoms Psychiatric: positive: No symptoms Objective - Patient Data Vital Signs: Vital Signs x48h Temp Pulse Resp BP Pulse Ox 09/15/17 03:40 36.8 C 83 16 123/79 98 Intake & Output: Intake and Output Totals x24h 09/13/17 09/14/17 09/15/17 23:59 23:59 23:59 Intake Total 4320.0 3120 Output Total 3920 2285 440 Balance 400 835 -440 - Lab Results Lab Results: 09/15/17 07:56 09/15/17 07:56 Other Lab Results: Lab Results x24hrs 09/15/17 09/15/17 Range/Units 07:56 07:56 WBC 8.9 (4.8-10.8) x10^3/uL RBC 4.04 L (4.70-6.10) 10^6/uL Hgb 11.4 L (14.0-18.0) g/dL Hct 33.5 L (42.0-52.0) % MCV 83.0 (80.0-94.0) fL MCH 28.3 (27.0-31.0) pg MCHC 34.2 (32.0-36.0) g/dL RDW 14.2 (12.0-15.0) % Plt Count 214 (130-450) 10^3/uL MPV 7.4 (7.4-11.4) fL Neut # 6.5 (1.5-6.6) 10^3/uL Lymph # 1.6 (1.5-3.5) 10^3/uL Winston # 0.6 (0.0-1.0) 10^3/uL Eos # 0.2 (0.0-0.7) 10^3/uL Baso # 0.0 (0.0-0.1) 10^3/uL Absolute Nucleated RBC 0.00 x10^3/uL Nucleated RBC % 0.0 /100WBC Sodium 136 (135-145) mmol/L Potassium 3.5 (3.5-5.0) mmol/L Chloride 100 L (101-111) mmol/L Carbon Dioxide 28 (21-32) mmol/L Anion Gap 8.0 (6-13) BUN 5 L (6-20) mg/dL Creatinine 0.8 (0.6-1.2) mg/dL Estimated GFR (MDRD) 102 (>89) Glucose 98 (70-100) mg/dL Calcium 8.3 L (8.5-10.3) mg/dL - Current Medications Current Medications: Current Medications Generic Name Dose Route Start Last Admin Trade Name Freq PRN Reason Stop Dose Admin Enoxaparin Sodium 40 mg 09/13/17 09:00 09/14/17 09:51 Lovenox SUBQ 40 mg DAILY KALYN Administration Lactated Ringer's 1,000 mls @ 50 mls/hr 09/12/17 21:00 09/14/17 14:37 Lr IV 50 mls/hr .Q20H KALYN Administration Acetaminophen 100 mls @ 400 mls/hr 09/12/17 21:00 09/15/17 06:59 Ofirmev IV Not Given Q6H KALYN Morphine Sulfate 2 mg 09/12/17 20:27 09/14/17 20:59 Morphine IVP 2 mg Q2H PRN Administration PAIN Ondansetron HCl 4 mg 09/12/17 20:28 09/13/17 01:55 Zofran Inj IVP 4 mg Q6H PRN Administration Nausea / Vomiting Oxycodone/Acetaminophen 1 tab 09/12/17 20:27 09/15/17 03:37 Percocet 5 Mg/325 Mg PO 1 tab Q4HR PRN Administration PAIN Pantoprazole Sodium 40 mg 09/13/17 07:00 09/15/17 06:15 Protonix IVP 40 mg QDAC KALYN Administration Sodium Chloride 10 ml 09/13/17 01:00 09/14/17 23:42 Normal Saline Flush 0.9% IVP Not Given 0100,0900,1700 KALYN Sodium Chloride 10 ml 09/12/17 20:28 09/15/17 06:15 Normal Saline Flush 0.9% IVP 10 ml PRN PRN Administration NEEDED PER PROVIDER ORDERS - Physical Exam Rectal: positive: Other (abdominal incisions clean without evidence of infection ) Impression/Plan - Problem List Problem List: s/p laparoscopic sigmoid colon resection for diverticular disease POD#3. Bowel function returning. Tolerating solid food. Start oral pain medication. Ambulate.
[2017-09-15] MEDS ORDERED: HYDROcod/ACETAM 5/325 MG TABLET PO PRN ×2 (08:40)
[2017-09-15] MEDS: SODIUM CHLORIDE FLUSH 0.9% 10 ML SYRINGE IVP SCH ×2 (08:46→14:28)
[2017-09-15] MEDS: ENOXAPARIN 40 MG/0.4 ML SYRINGE SUBQ SCH (09:00)
[2017-09-15] MEDS: LACTATED RINGERS 1,000 ML IV SCH (10:49)
[2017-09-15 13:14] VITALS: BP 137/86
--- NOTE | 2017-09-15 13:47 | Discharge Plan ---
Discharge Plan Disposition: Home, Self Care Condition: Good Prescriptions: HYDROcod/ACETAM 325 [[place] 5/325] 1 - 2 tab PO Q4HR PRN #40 tablet PRN Reason: Pain Diet: Regular Activity Restrictions: No lifting over 15 lbs Shower Restrictions: No Driving Restrictions: Yes Weight Bearing: Full Weight No Smoking: If you smoke, Please STOP! Call for help. Follow-up with: NHUNG CHAKRABORTY MD [Primary Care Provider] - 2 Weeks Corey Nelson MD [Provider Admit Priv/Credential] - 1 Week
[2017-09-15] MEDS: MORPHINE 2 MG/ML SYRINGE IVP PRN (14:23)
--- NOTE | 2017-09-18 11:36 | DISCHARGE SUMMARY ---
Physician: Crescencio Washington MD DATE OF ADMISSION: 09/12/2017 DATE OF DISCHARGE: 09/15/2017 ADMITTING PHYSICIAN: Corey Nelson MD REASON FOR ADMISSION: Recurrent sigmoid diverticulitis. HISTORY OF PRESENT ILLNESS: The patient is a 52-year-old male who presents with recurrent sigmoid diverticulitis. He has now elected to undergo resection with colorectal anastomosis, possible ostomy. PRINCIPAL DIAGNOSIS: Recurrent diverticulitis. OTHER MEDICAL PROBLEMS: Hypertension, hyperlipidemia, sleep apnea, gastroesophageal reflux disease. PROCEDURES: The patient underwent a laparoscopic sigmoid colon resection, single incision on 09/12/2017. HOSPITAL COURSE: The patient was admitted to the hospital and underwent the above procedure. He tolerated the procedure well and was transferred to the floor in stable condition. On postoperative day #1, he was started on a liquid diet and on postoperative day #2 a regular diet. He remained afebrile throughout hospitalization. His abdominal incision remained clean, dry, and intact without any evidence of infection. On postoperative day #3, he was tolerating a regular diet, tolerating oral pain medication, and was having bowel function. He was then discharged home in stable condition. DISCHARGE PROGRAM: Patient will be discharged home. Follow up in Dr. Nelson' clinic in 1 week. Regular diet, ambulate, may shower. No heavy lifting over 15 pounds for 7 weeks. MEDICATIONS: He is to resume his prehospitalization medications; in addition [place] 5/325 at 1-2 p.o. q.4-6 hours p.r.n. pain. TD: 09/18/2017 00:18
== END 2017-09-15 15:14 | disposition home or self-care (01) | DRG 330 ==
LOC: MS2 12:39
PROVIDERS: ADMIT Surgery; ATTEND Surgery
PROC: 0DBN4ZZ Excision of Sigmoid Colon, Percutaneous Endoscopic Approach (ICD-10-PCS; principal; 2017-09-12 13:45)
DX: K57.20 Diverticulitis of large intestine with perforation and abscess without bleeding (principal); I10 Essential (primary) hypertension; E78.5 Hyperlipidemia, unspecified; G47.30 Sleep apnea, unspecified; K21.9 Gastro-esophageal reflux disease without esophagitis; K44.9 Diaphragmatic hernia without obstruction or gangrene; Z79.891 Long term (current) use of opiate analgesic; Z79.899 Other long term (current) drug therapy
CPT/HCPCS: 80048; 85025; 88307

== ENCOUNTER 2018-01-27 16:23 | Outpatient (CLI) | payer OTHER ==
--- NOTE | 2018-01-28 23:35 | MRI Report ---
Procedure Date: 01/27/2018 Accession Number: [id number] / [id number] Procedure: MRI - Knee LT W/O CPT Code: FULL RESULT: EXAM: LEFT KNEE MRI WITHOUT CONTRAST. EXAM DATE: 01/27/2018 05:05 PM. CLINICAL HISTORY: Left knee pain. COMPARISON: None. TECHNIQUE: Multiplanar, multisequence T1-weighted and fluid-sensitive sequences of the knee without contrast. Other: None. FINDINGS: Bones: No fractures or subluxations. No marrow edema. No bone lesions. Articular Cartilage: Severe chondromalacia patellar apex. Severe chondromalacia medial trochlear groove. Severe chondromalacia mid medial femoral condyle. Medial Meniscus: Horizontal tear posterior horn medial meniscus with extension to the inferior articular surface. Truncation medial meniscus body free edge. Lateral Meniscus: The lateral meniscus is intact. Cruciate Ligaments: The anterior and posterior cruciate ligaments are intact. Collateral Ligaments: The medial collateral and lateral collateral ligamentous structures are intact. Tendons: The quadriceps, patellar, semimembranosus, and popliteus tendons are unremarkable. Musculature: No edema or fatty atrophy. Other: Small joint fluid. No popliteal cyst. No loose bodies. The medial and lateral retinacula are intact. The subcutaneous tissues and fat pads are unremarkable. IMPRESSION: 1. Horizontal tear posterior horn medial meniscus with extension to the inferior articular surface. 2. Severe chondromalacia patellar apex, medial trochlear groove and mid medial femoral condyle. [facility] MUSCULOSKELETAL RADIOLOGY SECTION
== END 2018-01-27 16:24 | disposition home or self-care (01) ==
LOC: DI 16:23
PROVIDERS: ATTEND Nurse Practitioner Acute Care
DX: S83.242A Other tear of medial meniscus, current injury, left knee, initial encounter (principal); M22.42 Chondromalacia patellae, left knee

== ENCOUNTER 2018-05-23 09:18 | Outpatient (CLI) | payer OTHER ==
--- NOTE | 2018-05-23 13:38 | XRAY Report ---
Reason: GERD Procedure Date: 05/23/2018 Accession Number: [id number] / [id number] Procedure: FL - Esophogram CPT Code: FULL RESULT: EXAM: BARIUM ESOPHAGRAM EXAM DATE: 05/23/2018 09:53 AM. CLINICAL HISTORY: GERD. COMPARISONS: None. TECHNIQUE: Routine double contrast esophagram. Fluoroscopy Time: 2.3 minutes. Number of Images: 40. FINDINGS: Swallowing Mechanism: Normal. No tracheal aspiration or penetration. Esophageal Motility: Normal peristaltic stripping wave. Mucosa: Normal. No ulcerations or masses. Gastroesophageal Junction: Minimal sliding hiatal hernia. Spontaneous reflux was noted. Other: There is distortion with persistent widening of the esophagus in the region of the aortic knob. IMPRESSION: Question adhesion with traction at the level of the aortic knob, possibly sequela of previous mediastinal inflammation. Reflux in the setting of a minimal hiatal hernia. No fixed stricture or overt masses detected. [facility]
== END 2018-05-23 09:19 | disposition home or self-care (01) ==
LOC: DI 09:18
PROVIDERS: ATTEND Nurse Practitioner Acute Care
DX: K21.9 Gastro-esophageal reflux disease without esophagitis (principal); K44.9 Diaphragmatic hernia without obstruction or gangrene
CPT/HCPCS: 74220

== ENCOUNTER 2022-07-23 13:57 | Emergency (ER) | payer OTHER ==
[2022-07-23 14:05] VITALS: BP 145/97
[2022-07-23] MEDS ORDERED: LIDOCAINE 1% 2 ML VIAL SUBQ STA (14:28)
[2022-07-23] MEDS ORDERED: BUPIVACAINE 0.5% PF 10 ML VIAL SUBQ STA (14:28)
--- NOTE | 2022-07-23 15:26 | ED Physician Documentation ---
PD HPI UPPER EXT INJURY - Stated complaint Stated Complaint: L INDEX FINGER CUT/INJ - Chief complaint Chief Complaint: Laceration - History obtained from History obtained from: Patient, Family - History of Present Illness Location: Left, Finger (index) Type of injury: Laceration Where injury occurred: Home Timing - onset: Today Timing - duration: Minutes Timing - details: Abrupt onset, Still present Improved by: Rest Worsened by: Moving, Palpating Associated symptoms: No: Weakness, Numbness, Tingling, Swelling Contributing factors: No: Anticoagulated Similar symptoms before: Diagnosis (laceration) Recently seen: Not recently seen - Additonal information Additional information: Artur Pemberton is a 57-year-old male who was using a machine cloth trimmer when he accidentally stuck his left hand into the blade and it lacerated his left index finger through his glove. Review of Systems Constitutional: denies: Fever Respiratory: denies: Cough GI: denies: Vomiting, Diarrhea PD PAST MEDICAL HISTORY - Past Medical History Past Medical History: Yes Cardiovascular: None Respiratory: None Neuro: None Endocrine/Autoimmune: None GI: GERD, Hiatal hernia : None HEENT: None Psych: None Musculoskeletal: Chronic back pain Derm: None - Past Surgical History Past Surgical History: Yes Ortho: Arthroscopic surgery HEENT: Tonsil/Adenoidectomy, Other - Present Medications Home Medications: Ambulatory Orders Medication Instructions Recorded Confirmed Omeprazole [PriLOSEC] 40 mg PO BID 07/23/17 07/23/22 Cetirizine [ZyrTEC] 10 mg PO DAILY 07/23/22 07/23/22 - Allergies Allergies/Adverse Reactions: Allergies Allergy/AdvReac Type Severity Reaction Status Date / Time hydromorphone [From Dilaudid] Allergy Emesis Verified 07/23/22 14:06 lactose Allergy Bloating, Verified 07/23/22 14:06 diarrhea - Social History Does the pt smoke?: No Smoking Status: Never smoker Does the pt drink ETOH?: No Does the pt have substance abuse?: No - Immunizations Immunizations are current?: Yes - POLST Patient has POLST: No PD ED PE NORMAL - Vitals Vital signs reviewed: Yes (tachy and hypertensive ) - General General: Alert and oriented X 3, No acute distress, Well developed/nourished - HEENT HEENT: Atraumatic, PERRL, EOMI - Respiratory Respiratory: No respiratory distress - Derm Derm: Normal color, Warm and dry, No rash - Extremities Extremities: No deformity, No edema, Other (There is a 3.5 cm laceration to the pulp of the index fingertip on the left hand. This is a flap laceration without foreign material bone is not exposed) Results - Vitals Vitals: Vital Signs - 24 hr 07/23/22 14:01 Temperature 36.6 C Heart Rate 121 H Respiratory 16 Rate Blood Pressure 145/97 H O2 Saturation 97 Oxygen O2 Source Room air Procedures - Laceration (location) left index Length in cm: 3 Wound type: Curved, Flap, Into subcut fat, Clean Neurovascular status: Sensory intact, Motor intact, Vascular intact Anesthesia: Lidocaine 1%, Marcaine 0.5%, Other (digital block) Wound preparation: Hibiclens, Irrigated copiously NS, Wound explored, To the base Skin layer closure: Nylon, Interrupted, Size #-0 - enter number (5-0) Other: Patient tolerated well, No complications, Neurovascular intact, Dressing applied, Tetanus UTD PD Medical Decision Making - ED course Complexity details: considered differential, d/w patient, d/w family ED course: 57-year-old male with a laceration to his left index finger. He is anesthetized with bupivacaine and lidocaine with a digital block which works excellently. Wound is cleansed and sutured. Departure - Departure Disposition: 01 Home, Self Care Clinical Impression: Laceration of left index finger Qualifiers: Encounter type: initial encounter Damage to nail status: without damage Foreign body presence: without foreign body Qualified Code(s): S61.211A - Laceration without foreign body of left index finger without damage to nail, initial encounter Condition: Stable Instructions: ED Laceration Hand Follow-Up: Lele Flynn MD [Primary Care Provider] - Comments: Sutures will need to be removed in 7 to 10 days Discharge Date/Time: 07/23/22 15:50
== END 2022-07-23 15:50 | disposition home or self-care (01) ==
LOC: ED 13:57
DX: S61.211A Laceration without foreign body of left index finger without damage to nail, initial encounter (principal); W29.3XXA Contact with powered garden and outdoor hand tools and machinery, initial encounter; Y92.009 Unspecified place in unspecified non-institutional (private) residence as the place of occurrence of the external cause
CPT/HCPCS: 12002; 99281; 99283